=== PATIENT | male | born 1950 | race Caucasian/White ===

== ENCOUNTER 2017-06-15 21:28 | Inpatient (IN) | payer OTHER, MEDICARE ==
[2017-06-15 22:16] LABS: BASO # 0.1 10^3/uL (0.0-0.2); BASO % 0.5 % (0.0-1.0); EOS # 0.1 10^3/uL (0.0-0.50); EOS % 0.6 % (0.0-3.0); HEMATOCRIT 31.7 % (42.0-52.0); HEMOGLOBIN 10.3 g/dl (14.0-18.0); IMMATURE GRANULOCYTE % 1.1 % (0-3.0); LYMPH # 2.1 10^3/uL (1.5-4.5); LYMPH % 12.7 % (24.0-44.0); MEAN CORPUSCULAR HEMOGLOBIN 31.6 pg (27.0-33.0); MEAN CORPUSCULAR HGB CONC 32.5 g/dl (32.0-36.5); MEAN CORPUSCULAR VOLUME 97.2 fl (80.0-96.0); MONO # 1.2 10^3/uL (0.0-0.8); MONO % 7.4 % (0.0-5.0); NEUTROPHILS # 12.6 10^3/uL (1.8-7.7); NEUTROPHILS % 77.7 % (36.0-66.0); PLATELET COUNT, AUTOMATED 485 10^3/uL (150-450); RED BLOOD COUNT 3.26 10^6/uL (4.30-6.10); RED CELL DISTRIBUTION WIDTH 31.3 % (11.5-14.5); WHITE BLOOD COUNT 16.2 10^3/uL (4.0-10.0)
[2017-06-15 22:26] LABS: ADD MORPHOLOGY? YES; POSITIVE MORPH POS FLAG
[2017-06-15 22:28] LABS: LACTIC ACID SEPSIS PROTOCOL 1.5 MMOL/L (0.4-2.0)
[2017-06-15 22:29] LABS: NT-PRO BNP 2174 PG/ML (<125)
[2017-06-15 22:30] LABS: ANION GAP 7 MEQ/L (8-16); BLOOD UREA NITROGEN 30 MG/DL (7-18); CALCIUM LEVEL 8.9 MG/DL (8.8-10.2); CARBON DIOXIDE LEVEL 27 MEQ/L (21-32); CHLORIDE LEVEL 107 MEQ/L (98-107); CK-MB VALUE MASS 1.1 NG/ML (0.0-3.6); CPK CREATINE PHOSPHOKINASE 28 U/L (39-308); CREATININE FOR GFR 1.19 MG/DL (0.70-1.30); GLOMERULAR FILTRATION RATE > 60.0 (>49); GLUCOSE, FASTING 78 MG/DL (70-100); MB/CK RELATIVE INDEX 3.92 (< OR =4); POTASSIUM SERUM 4.1 MEQ/L (3.5-5.1); SODIUM LEVEL 141 MEQ/L (136-145); TROPONIN I < 0.02 NG/ML (< 0.10)
[2017-06-15 22:34] LABS: ABG BASE EXCESS -1.2 (-2.0-2.0); ABG HCO3 21.9 MEQ/L (22.0-26.0); ABG O2 SATURATION 98.5 % (95.0-99.0); ABG PARTIAL PRESSURE CO2 31.2 mmHg (35.0-45.0); ABG PARTIAL PRESSURE O2 113.2 mmHg (75.0-100.0); ABG STANDARD HCO3 23.4 MEQ/L (22.0-26.0); ABG TOTAL CO2 22.9 MEQ/L (23.0-31.0); ABG pH (ARTERIAL) 7.464 UNITS (7.350-7.450)
[2017-06-15 22:52] LABS: INFLUENZA A AMPLIFICATION NEGATIVE (NEGATIVE); INFLUENZA B AMPLIFICATION NEGATIVE (NEGATIVE)
[2017-06-15 23:18] LABS: ANISOCYTOSIS 3+; HYPOCHROMASIA 2+; TARGET CELLS 1+
[2017-06-15 23:19] LABS: GIANT PLATELETS 1+; PLATELET ESTIMATE INCREASED (NORMAL)
[2017-06-15 23:22] LABS: POIKILOCYTOSIS 1+
[2017-06-15] MEDS ORDERED: IPRATROPIUM 0.5MG/ALBUTEROL 2.5MG INH SOL UD 3ML (DUONEB)(J7620) NEB (23:30)
[2017-06-15] MEDS ORDERED: DEXTROSE 50% 50 ML SYRINGE IV (23:30)
[2017-06-15] MEDS ORDERED: GLUCAGON FOR INJ 1 MG VIAL (J1610) SC (23:30)
[2017-06-15] MEDS ORDERED: ONDANSETRON 4MG/2ML VIAL (J2405) IV (23:30)
[2017-06-15] MEDS ORDERED: GLUCOSE 4 GM CHEW TABLET PO (23:30)
[2017-06-15] MEDS: PIPERACILLIN/TAZOBACTAM SOD 3.375 GM in APPROPRIATE DILUENT 1 EA IV (23:57)
[2017-06-16] MEDS: OMEPRAZOLE 20 MG CAP PO ×4 (00:22→20:01)
[2017-06-16] MEDS: IPRATROPIUM 0.5MG/ALBUTEROL 2.5MG INH SOL UD 3ML (DUONEB)(J7620) NEB ×4 (01:01→23:09)
[2017-06-16] MEDS: methylPREDNISolone INJ 125 MG/2 ML VIAL (J2930) IV ×3 (01:02→23:15)
[2017-06-16] MEDS: ACETAMINOPHEN TAB 650MG DOSE (2X325MG) PO (02:40)
[2017-06-16] MEDS: ALBUTEROL SULFATE 2.5 MG/0.5 ML INH NEB SOLN NEB (02:48)
[2017-06-16] MEDS: HumaLOG INSULIN (NovoLOG) PER UNIT SC ×4 (07:45→20:53)
[2017-06-16 07:48] LABS: BEDSIDE GLUCOSE 266 MG/DL (80-115)
[2017-06-16] MEDS: HYOSCYAMINE SULFATE 0.125 MG SUBL TABLET PO ×3 (08:45→20:01)
[2017-06-16] MEDS: FEBUXOSTAT 40 MG TABLET (ULORIC) PO (08:45)
[2017-06-16] MEDS: DOCUSATE SODIUM 100 MG CAP PO ×2 (08:48→20:01)
[2017-06-16] MEDS: PIPERACILLIN/TAZOBACTAM SOD 3.375 GM in APPROPRIATE DILUENT 1 EA IV ×3 (08:48→23:15)
[2017-06-16] MEDS: METOPROLOL SUCC *XL* 25MG TAB (TopROL *XL*) PO (08:48)
[2017-06-16] MEDS: ENOXAPARIN 40 MG/0.4 ML SYRINGE (J1650) SC (08:50)
[2017-06-16 09:32] LABS: PHOSPHORUS LEVEL 4.9 MG/DL (2.5-4.9)
[2017-06-16 09:32] LABS: MAGNESIUM LEVEL 1.9 MG/DL (1.8-2.4)
[2017-06-16] MEDS: LORazepam 0.5 MG TAB PO ×2 (10:38→20:01)
[2017-06-16 11:45] LABS: BEDSIDE GLUCOSE 398 MG/DL (80-115)
[2017-06-16 13:36] LABS: ANION GAP 12 MEQ/L (8-16); BLOOD UREA NITROGEN 48 MG/DL (7-18); CALCIUM LEVEL 8.8 MG/DL (8.8-10.2); CARBON DIOXIDE LEVEL 22 MEQ/L (21-32); CHLORIDE LEVEL 102 MEQ/L (98-107); CPK CREATINE PHOSPHOKINASE 60 U/L (39-308); CREATININE FOR GFR 1.74 MG/DL (0.70-1.30); GLOMERULAR FILTRATION RATE 42.1 (>49); GLUCOSE, FASTING 394 MG/DL (70-100); MAGNESIUM LEVEL 1.9 MG/DL (1.8-2.4); POTASSIUM SERUM 4.9 MEQ/L (3.5-5.1); SODIUM LEVEL 136 MEQ/L (136-145); TROPONIN I < 0.02 NG/ML (< 0.10)
[2017-06-16 13:37] LABS: CK-MB VALUE MASS 1.9 NG/ML (0.0-3.6); MB/CK RELATIVE INDEX 3.16 (< OR =4)
[2017-06-16] MEDS: MAG SULF 1GM/100ML (MAG RUN) 1 GM in APPROPRIATE DILUENT 1 EA IV (14:26)
[2017-06-16 17:41] LABS: BEDSIDE GLUCOSE 438 MG/DL (80-115)
[2017-06-16] MEDS: BENZONATATE 100 MG CAP PO (20:01)
[2017-06-16 21:18] LABS: BEDSIDE GLUCOSE 472 MG/DL (80-115)
[2017-06-16 23:20] LABS: BEDSIDE GLUCOSE 420 MG/DL (80-115)
[2017-06-17] MEDS: BENZONATATE 100 MG CAP PO ×3 (03:55→21:49)
[2017-06-17 04:22] LABS: BASO % 0.1 % (0.0-1.0); HEMATOCRIT 26.4 % (42.0-52.0); HEMOGLOBIN 8.8 g/dl (14.0-18.0); IMMATURE GRANULOCYTE % 1.1 % (0-3.0); LYMPH # 0.7 10^3/uL (1.5-4.5); LYMPH % 4.9 % (24.0-44.0); MEAN CORPUSCULAR HEMOGLOBIN 31.3 pg (27.0-33.0); MEAN CORPUSCULAR HGB CONC 33.3 g/dl (32.0-36.5); MONO # 0.5 10^3/uL (0.0-0.8); MONO % 3.3 % (0.0-5.0); NEUTROPHILS # 13.3 10^3/uL (1.8-7.7); NEUTROPHILS % 90.6 % (36.0-66.0); PLATELET COUNT, AUTOMATED 393 10^3/uL (150-450); RED BLOOD COUNT 2.81 10^6/uL (4.30-6.10); RED CELL DISTRIBUTION WIDTH 31.2 % (11.5-14.5); WHITE BLOOD COUNT 14.6 10^3/uL (4.0-10.0)
[2017-06-17 04:24] LABS: ADD MORPHOLOGY? YES; POSITIVE MORPH POS FLAG
[2017-06-17 04:45] LABS: ANION GAP 10 MEQ/L (8-16); BLOOD UREA NITROGEN 63 MG/DL (7-18); CALCIUM LEVEL 8.6 MG/DL (8.8-10.2); CARBON DIOXIDE LEVEL 22 MEQ/L (21-32); CHLORIDE LEVEL 102 MEQ/L (98-107); CREATININE FOR GFR 1.83 MG/DL (0.70-1.30); GLOMERULAR FILTRATION RATE 39.7 (>49); MAGNESIUM LEVEL 2.2 MG/DL (1.8-2.4); POTASSIUM SERUM 4.3 MEQ/L (3.5-5.1); SODIUM LEVEL 134 MEQ/L (136-145)
[2017-06-17 04:53] LABS: GLUCOSE, FASTING 477 MG/DL (70-100)
[2017-06-17 05:00] LABS: TARGET CELLS 1+
[2017-06-17 05:01] LABS: HYPOCHROMASIA 2+
[2017-06-17 05:04] LABS: ANISOCYTOSIS 3+; POIKILOCYTOSIS 1+
[2017-06-17 05:05] LABS: PLATELET ESTIMATE NORMAL (NORMAL)
[2017-06-17] MEDS: HumaLOG INSULIN (NovoLOG) PER UNIT SC ×5 (05:09→21:51)
[2017-06-17 05:39] LABS: BEDSIDE GLUCOSE 496 MG/DL (80-115)
[2017-06-17 06:09] LABS: BEDSIDE GLUCOSE 460 MG/DL (80-115)
[2017-06-17 07:40] LABS: BEDSIDE GLUCOSE 448 MG/DL (80-115)
[2017-06-17] MEDS: PIPERACILLIN/TAZOBACTAM SOD 3.375 GM in APPROPRIATE DILUENT 1 EA IV ×2 (07:51→16:17)
[2017-06-17] MEDS: IPRATROPIUM 0.5MG/ALBUTEROL 2.5MG INH SOL UD 3ML (DUONEB)(J7620) NEB ×2 (08:17→15:12)
[2017-06-17] MEDS ORDERED: CHLORTHALIDONE 25 MG TAB PO (09:00)
[2017-06-17] MEDS: HYOSCYAMINE SULFATE 0.125 MG SUBL TABLET PO ×3 (09:09→21:50)
[2017-06-17] MEDS: ENOXAPARIN 40 MG/0.4 ML SYRINGE (J1650) SC (09:10)
[2017-06-17] MEDS: LEVEMIR (INSULIN DETEMIR) 1 UNITS/0.01ML SC ×2 (09:11→21:50)
[2017-06-17] MEDS: OMEPRAZOLE 20 MG CAP PO ×2 (09:12→21:50)
[2017-06-17] MEDS: FEBUXOSTAT 40 MG TABLET (ULORIC) PO (09:12)
[2017-06-17] MEDS: METOPROLOL SUCC *XL* 25MG TAB (TopROL *XL*) PO (09:12)
[2017-06-17] MEDS: DOCUSATE SODIUM 100 MG CAP PO ×2 (09:12→21:50)
[2017-06-17 11:55] LABS: BEDSIDE GLUCOSE 482 MG/DL (80-115)
[2017-06-17] MEDS: methylPREDNISolone INJ 125 MG/2 ML VIAL (J2930) IV (12:03)
[2017-06-17] MEDS: LORazepam 0.5 MG TAB PO (16:22)
[2017-06-17 17:43] LABS: BEDSIDE GLUCOSE 479 MG/DL (80-115)
[2017-06-17 22:04] LABS: BEDSIDE GLUCOSE 500 MG/DL (80-115)
[2017-06-18] MEDS: IPRATROPIUM 0.5MG/ALBUTEROL 2.5MG INH SOL UD 3ML (DUONEB)(J7620) NEB ×2 (00:04→07:53)
[2017-06-18] MEDS: methylPREDNISolone INJ 125 MG/2 ML VIAL (J2930) IV (00:08)
[2017-06-18] MEDS: LORazepam 0.5 MG TAB PO ×3 (00:08→20:16)
[2017-06-18] MEDS: PIPERACILLIN/TAZOBACTAM SOD 3.375 GM in APPROPRIATE DILUENT 1 EA IV ×3 (00:08→17:32)
[2017-06-18 01:19] LABS: HEMATOCRIT 28.6 % (42.0-52.0); HEMOGLOBIN 9.3 g/dl (14.0-18.0); MEAN CORPUSCULAR HEMOGLOBIN 31.1 pg (27.0-33.0); MEAN CORPUSCULAR HGB CONC 32.5 g/dl (32.0-36.5); MEAN CORPUSCULAR VOLUME 95.7 fl (80.0-96.0); PLATELET COUNT, AUTOMATED 371 10^3/uL (150-450); RED BLOOD COUNT 2.99 10^6/uL (4.30-6.10); RED CELL DISTRIBUTION WIDTH 31.6 % (11.5-14.5); WHITE BLOOD COUNT 17.1 10^3/uL (4.0-10.0)
[2017-06-18 01:30] LABS: ANION GAP 10 MEQ/L (8-16); BLOOD UREA NITROGEN 75 MG/DL (7-18); CALCIUM LEVEL 8.9 MG/DL (8.8-10.2); CARBON DIOXIDE LEVEL 24 MEQ/L (21-32); CHLORIDE LEVEL 104 MEQ/L (98-107); CK-MB VALUE MASS 12.1 NG/ML (0.0-3.6); CPK CREATINE PHOSPHOKINASE 180 U/L (39-308); CREATININE FOR GFR 2.04 MG/DL (0.70-1.30); GLOMERULAR FILTRATION RATE 35.1 (>49); MB/CK RELATIVE INDEX 6.72 (< OR =4); POSITIVE MORPH POS FLAG; POTASSIUM SERUM 4.5 MEQ/L (3.5-5.1); SODIUM LEVEL 138 MEQ/L (136-145); TROPONIN I 0.43 NG/ML (< 0.10)
[2017-06-18 01:35] LABS: GLUCOSE, FASTING 422 MG/DL (70-100)
[2017-06-18 01:37] LABS: MAGNESIUM LEVEL 2.2 MG/DL (1.8-2.4)
[2017-06-18 04:13] LABS: HEMATOCRIT 27.6 % (42.0-52.0); MEAN CORPUSCULAR HEMOGLOBIN 31.3 pg (27.0-33.0); MEAN CORPUSCULAR HGB CONC 32.6 g/dl (32.0-36.5); MEAN CORPUSCULAR VOLUME 95.8 fl (80.0-96.0); PLATELET COUNT, AUTOMATED 355 10^3/uL (150-450); RED BLOOD COUNT 2.88 10^6/uL (4.30-6.10); RED CELL DISTRIBUTION WIDTH 30.9 % (11.5-14.5); WHITE BLOOD COUNT 16.9 10^3/uL (4.0-10.0)
[2017-06-18 04:14] LABS: ADD MANUAL DIFFER YES; DIFF SLIDE NUMBER 40; POSITIVE MORPH POS FLAG
[2017-06-18] MEDS: AMIODARONE HCL 150 MG in APPROPRIATE DILUENT 1 EA IV (04:20)
[2017-06-18 04:32] LABS: ANION GAP 10 MEQ/L (8-16); BLOOD UREA NITROGEN 78 MG/DL (7-18); CALCIUM LEVEL 8.4 MG/DL (8.8-10.2); CARBON DIOXIDE LEVEL 21 MEQ/L (21-32); CHLORIDE LEVEL 105 MEQ/L (98-107); CREATININE FOR GFR 1.96 MG/DL (0.70-1.30); GLOMERULAR FILTRATION RATE 36.7 (>49); MAGNESIUM LEVEL 2.1 MG/DL (1.8-2.4); POTASSIUM SERUM 4.5 MEQ/L (3.5-5.1); SODIUM LEVEL 136 MEQ/L (136-145)
[2017-06-18 04:46] LABS: GLUCOSE, FASTING 481 MG/DL (70-100)
[2017-06-18 05:07] LABS: ANISOCYTOSIS 3+; ATYPICAL LYMPH 1 % (0-5); HYPOCHROMASIA 2+; MONOCYTES 2 % (0-8); NEUTROPHILS 97 % (35-75)
[2017-06-18 05:08] LABS: POIKILOCYTOSIS 1+; TARGET CELLS 1+
[2017-06-18 05:09] LABS: GIANT PLATELETS 1+
[2017-06-18 05:12] LABS: PLATELET ESTIMATE NORMAL (NORMAL)
[2017-06-18 05:53] LABS: CPK CREATINE PHOSPHOKINASE 161 U/L (39-308); MB/CK RELATIVE INDEX 7.45 (< OR =4); TROPONIN I 0.38 NG/ML (< 0.10)
[2017-06-18] MEDS: ENOXAPARIN 40 MG/0.4 ML SYRINGE (J1650) SC (08:22)
[2017-06-18] MEDS: HumaLOG INSULIN (NovoLOG) PER UNIT SC ×5 (08:22→20:17)
[2017-06-18] MEDS: HYOSCYAMINE SULFATE 0.125 MG SUBL TABLET PO ×3 (08:23→20:16)
[2017-06-18] MEDS: FEBUXOSTAT 40 MG TABLET (ULORIC) PO (08:23)
[2017-06-18] MEDS: ASPIRIN 325 MG TAB PO (08:23)
[2017-06-18] MEDS: DOCUSATE SODIUM 100 MG CAP PO ×2 (08:23→20:16)
[2017-06-18] MEDS: OMEPRAZOLE 20 MG CAP PO ×2 (08:23→20:16)
[2017-06-18] MEDS: METOPROLOL SUCC *XL* 25MG TAB (TopROL *XL*) PO (08:24)
[2017-06-18] MEDS: CHLORTHALIDONE 25 MG TAB PO (08:24)
[2017-06-18] MEDS: predniSONE 20 MG TAB PO (08:24)
[2017-06-18] MEDS: BENZONATATE 100 MG CAP PO ×2 (08:29→22:21)
[2017-06-18 12:04] LABS: BEDSIDE GLUCOSE 560 MG/DL (80-115)
[2017-06-18 12:27] LABS: BEDSIDE GLUCOSE 522 MG/DL (80-115)
[2017-06-18 12:27] LABS: BEDSIDE GLUCOSE 487 MG/DL (80-115)
[2017-06-18 12:40] LABS: BEDSIDE GLUCOSE CONFIRMATION 585 MG/DL (LESS THAN 200)
[2017-06-18] MEDS: LEVEMIR (INSULIN DETEMIR) 1 UNITS/0.01ML SC ×3 (13:15→20:17)
[2017-06-18 16:59] LABS: BEDSIDE GLUCOSE 382 MG/DL (80-115)
[2017-06-18 20:38] LABS: BEDSIDE GLUCOSE 360 MG/DL (80-115)
[2017-06-19] MEDS: IPRATROPIUM 0.5MG/ALBUTEROL 2.5MG INH SOL UD 3ML (DUONEB)(J7620) NEB ×3 (00:11→15:19)
[2017-06-19] MEDS: PIPERACILLIN/TAZOBACTAM SOD 3.375 GM in APPROPRIATE DILUENT 1 EA IV (02:28)
[2017-06-19 04:44] LABS: HEMATOCRIT 29.7 % (42.0-52.0); HEMOGLOBIN 9.6 g/dl (14.0-18.0); IMMATURE GRANULOCYTE % 0.7 % (0-3.0); LYMPH # 0.7 10^3/uL (1.5-4.5); LYMPH % 7.1 % (24.0-44.0); MEAN CORPUSCULAR HEMOGLOBIN 30.5 pg (27.0-33.0); MEAN CORPUSCULAR HGB CONC 32.3 g/dl (32.0-36.5); MEAN CORPUSCULAR VOLUME 94.3 fl (80.0-96.0); MONO % 9.4 % (0.0-5.0); NEUTROPHILS # 8.4 10^3/uL (1.8-7.7); NEUTROPHILS % 82.8 % (36.0-66.0); PLATELET COUNT, AUTOMATED 326 10^3/uL (150-450); RED BLOOD COUNT 3.15 10^6/uL (4.30-6.10); RED CELL DISTRIBUTION WIDTH 31.1 % (11.5-14.5); WHITE BLOOD COUNT 10.2 10^3/uL (4.0-10.0)
[2017-06-19 05:01] LABS: ANION GAP 7 MEQ/L (8-16); BLOOD UREA NITROGEN 74 MG/DL (7-18); CALCIUM LEVEL 8.8 MG/DL (8.8-10.2); CARBON DIOXIDE LEVEL 26 MEQ/L (21-32); CHLORIDE LEVEL 108 MEQ/L (98-107); CREATININE FOR GFR 1.73 MG/DL (0.70-1.30); GLOMERULAR FILTRATION RATE 42.4 (>49); GLUCOSE, FASTING 228 MG/DL (70-100); MAGNESIUM LEVEL 2.3 MG/DL (1.8-2.4); POTASSIUM SERUM 4.8 MEQ/L (3.5-5.1); SODIUM LEVEL 141 MEQ/L (136-145)
[2017-06-19 05:09] LABS: ADD MORPHOLOGY? YES; POSITIVE MORPH POS FLAG
[2017-06-19 05:13] LABS: ANISOCYTOSIS 3+; HYPOCHROMASIA 1+; POIKILOCYTOSIS 1+
[2017-06-19 05:14] LABS: TARGET CELLS 1+
[2017-06-19] MEDS: HumaLOG INSULIN (NovoLOG) PER UNIT SC ×4 (08:58→20:19)
[2017-06-19] MEDS: LEVEMIR (INSULIN DETEMIR) 1 UNITS/0.01ML SC ×2 (08:58→20:18)
[2017-06-19] MEDS: ENOXAPARIN 40 MG/0.4 ML SYRINGE (J1650) SC (08:58)
[2017-06-19] MEDS: CEFDINIR 300 MG CAP (OMNICEF) PO (08:59)
[2017-06-19] MEDS: DOCUSATE SODIUM 100 MG CAP PO ×2 (08:59→20:18)
[2017-06-19] MEDS: FUROSEMIDE 40 MG TAB PO (08:59)
[2017-06-19] MEDS: HYOSCYAMINE SULFATE 0.125 MG SUBL TABLET PO ×3 (08:59→20:17)
[2017-06-19] MEDS: OMEPRAZOLE 20 MG CAP PO ×2 (08:59→20:17)
[2017-06-19] MEDS: METOPROLOL SUCC (TopROL XL) 50MG **XL** TAB PO (08:59)
[2017-06-19] MEDS: ASPIRIN 325 MG TAB PO (08:59)
[2017-06-19] MEDS: FEBUXOSTAT 40 MG TABLET (ULORIC) PO (08:59)
[2017-06-19] MEDS: predniSONE 20 MG TAB PO (09:00)
[2017-06-19] MEDS: BENZONATATE 100 MG CAP PO ×2 (09:03→20:17)
[2017-06-19 10:09] LABS: PLATELET ESTIMATE NORMAL (NORMAL)
[2017-06-19 11:59] LABS: BEDSIDE GLUCOSE 312 MG/DL (80-115)
[2017-06-19] MEDS: LORazepam 0.5 MG TAB PO ×2 (14:32→21:41)
[2017-06-19] MEDS ORDERED: LORazepam 0.5 MG TAB PO (16:00)
[2017-06-19 16:36] LABS: BEDSIDE GLUCOSE 312 MG/DL (80-115)
[2017-06-19 20:15] LABS: BEDSIDE GLUCOSE 402 MG/DL (80-115)
[2017-06-20 04:58] LABS: EOS % 0.5 % (0.0-3.0); HEMOGLOBIN 9.4 g/dl (14.0-18.0); IMMATURE GRANULOCYTE % 0.3 % (0-3.0); LYMPH # 1.2 10^3/uL (1.5-4.5); LYMPH % 19.9 % (24.0-44.0); MEAN CORPUSCULAR HEMOGLOBIN 31.4 pg (27.0-33.0); MEAN CORPUSCULAR HGB CONC 33.6 g/dl (32.0-36.5); MEAN CORPUSCULAR VOLUME 93.6 fl (80.0-96.0); MONO % 16.7 % (0.0-5.0); NEUTROPHILS # 3.7 10^3/uL (1.8-7.7); NEUTROPHILS % 62.6 % (36.0-66.0); PLATELET COUNT, AUTOMATED 295 10^3/uL (150-450); RED BLOOD COUNT 2.99 10^6/uL (4.30-6.10); WHITE BLOOD COUNT 5.9 10^3/uL (4.0-10.0)
[2017-06-20 05:02] LABS: ADD MORPHOLOGY? YES; POSITIVE MORPH POS FLAG
[2017-06-20] MEDS: LORazepam 0.5 MG TAB PO (05:09)
[2017-06-20 05:13] LABS: ANION GAP 7 MEQ/L (8-16); BLOOD UREA NITROGEN 65 MG/DL (7-18); CALCIUM LEVEL 8.4 MG/DL (8.8-10.2); CARBON DIOXIDE LEVEL 29 MEQ/L (21-32); CHLORIDE LEVEL 107 MEQ/L (98-107); CREATININE FOR GFR 1.26 MG/DL (0.70-1.30); GLOMERULAR FILTRATION RATE > 60.0 (>49); GLUCOSE, FASTING 161 MG/DL (70-100); POTASSIUM SERUM 4.4 MEQ/L (3.5-5.1); SODIUM LEVEL 143 MEQ/L (136-145)
[2017-06-20 05:26] LABS: ANISOCYTOSIS 3+; HYPOCHROMASIA 1+; PLATELET ESTIMATE NORMAL (NORMAL); POIKILOCYTOSIS 1+
[2017-06-20] MEDS: HumaLOG INSULIN (NovoLOG) PER UNIT SC ×2 (07:16→11:57)
[2017-06-20] MEDS: IPRATROPIUM 0.5MG/ALBUTEROL 2.5MG INH SOL UD 3ML (DUONEB)(J7620) NEB ×2 (07:45)
[2017-06-20] MEDS: ASPIRIN 325 MG TAB PO (08:27)
[2017-06-20] MEDS: LEVEMIR (INSULIN DETEMIR) 1 UNITS/0.01ML SC (08:27)
[2017-06-20] MEDS: FEBUXOSTAT 40 MG TABLET (ULORIC) PO (08:27)
[2017-06-20] MEDS: ENOXAPARIN 40 MG/0.4 ML SYRINGE (J1650) SC (08:27)
[2017-06-20] MEDS: predniSONE 20 MG TAB PO (08:28)
[2017-06-20] MEDS: HYOSCYAMINE SULFATE 0.125 MG SUBL TABLET PO (08:28)
[2017-06-20] MEDS: DOCUSATE SODIUM 100 MG CAP PO (08:28)
[2017-06-20] MEDS: CEFDINIR 300 MG CAP (OMNICEF) PO (08:28)
[2017-06-20] MEDS: FUROSEMIDE 40 MG TAB PO (08:29)
[2017-06-20] MEDS: METOPROLOL SUCC (TopROL XL) 50MG **XL** TAB PO (08:29)
[2017-06-20] MEDS: OMEPRAZOLE 20 MG CAP PO (08:29)
[2017-06-20 11:50] LABS: BEDSIDE GLUCOSE 158 MG/DL (80-115)
[2017-06-21] MEDS ORDERED: predniSONE 10 MG TAB PO (09:00)
[2017-06-24] MEDS ORDERED: predniSONE 10 MG TAB PO (09:00)
[2017-06-27] MEDS ORDERED: predniSONE 10 MG TAB PO (09:00)
== END 2017-06-20 12:45 | disposition home or self-care (01) | DRG 871 ==
LOC: M ICU 06-16 07:18 → M ED 21:28 → M ED INP 23:26
DX: A41.9 Sepsis, unspecified organism (principal); J96.01 Acute respiratory failure with hypoxia; J18.9 Pneumonia, unspecified organism; E87.3 Alkalosis; I13.0 Hypertensive heart and chronic kidney disease with heart failure and stage 1 through stage 4 chronic kidney disease, or unspecified chronic kidney disease; I47.2 Ventricular tachycardia; J84.89 Other specified interstitial pulmonary diseases; I49.3 Ventricular premature depolarization; K80.20 Calculus of gallbladder without cholecystitis without obstruction; E11.22 Type 2 diabetes mellitus with diabetic chronic kidney disease; D46.9 Myelodysplastic syndrome, unspecified; F41.9 Anxiety disorder, unspecified; I50.9 Heart failure, unspecified; N18.3 Chronic kidney disease, stage 3 (moderate); K21.9 Gastro-esophageal reflux disease without esophagitis; M10.9 Gout, unspecified; J43.9 Emphysema, unspecified; Z79.82 Long term (current) use of aspirin; Z79.4 Long term (current) use of insulin; Z79.899 Other long term (current) drug therapy; Z92.21 Personal history of antineoplastic chemotherapy

== ENCOUNTER 2018-07-31 12:32 | Inpatient (IN) | payer OTHER, MEDICARE ==
[~2018-07-31] VITALS: Ht 172.7 cm; Wt 107.5 kg
[~2018-07-31 12:32] MED LIST: ACET1TAB55 PO; ALBU83IN INH; AMOX500T2 PO; ASPI1TAB20 PO; ASPI81TA26 PO; AUGM500T34 PO; AUGM875T28 PO; BENA20TA8 PO; BENZ-18 PO; CEFD1CAP8 PO; CHLO125TA PO; CHLO25TA PO; CHLO50TA PO; CIPR-249 PO; CIPR-250 PO; CIPR250T3 PO; DRIS50003 PO; FEBU40TA PO; FURO40TA2 PO; GLIM1TAB PO; GLIM2TAB PO; HEPA10004 INJ; HUMA100I5 SC; HYDR-3713 PO; HYOS0.1248 PO; HYOS0.1256 SL; INSUHUMDS SC; LASI20TA3 PO; LEVO750T13 PO; LORA0.5T11 PO; LORA1TAB12 PO; METO1TAB32 PO; METO1TAB7 PO; MILK120011 PO; MOXI1TAB PO; OMEP40CA2 PO; PRED-351 PO; PRED10TA2 PO; PRED20TAB PO; PROC1INJ IV; PROC1INJ5 IJ; PROC1INJ6 INJ; Revlimid 10mg cap PO; TORS10TA3 PO; TRES1INJ SC; prednisone PO
[2018-07-31 13:24] LABS: BASO % 0.1 % (0.0-1.0); EOS % 0.1 % (0.0-3.0); HEMATOCRIT 22.9 % (42.0-52.0); HEMOGLOBIN 7.1 g/dl (13.5-17.5); LYMPH # 1.2 10^3/uL (1.5-4.5); LYMPH % 10.3 % (24.0-44.0); MEAN CORPUSCULAR VOLUME 103.2 fl (80.0-96.0); MONO # 1.4 10^3/uL (0.0-0.8); MONO % 12.4 % (0.0-5.0); NEUTROPHILS # 8.5 10^3/uL (1.8-7.7); NEUTROPHILS % 75.6 % (36.0-66.0); PLATELET COUNT, AUTOMATED 181 10^3/uL (150-450); RED BLOOD COUNT 2.22 10^6/uL (4.30-6.10); WHITE BLOOD COUNT 11.3 10^3/uL (4.0-10.0)
[2018-07-31 13:39] LABS: INR 1.37; PROTHROMBIN TIME 17.1 SECONDS (12.1-14.4)
--- NOTE | 2018-07-31 13:45 | REP ---
PORTABLE CHEST: AP portable view of the chest is performed. Comparison made with prior studies, most recently 06/29/2015. The heart appears enlarged. There appears to be increased opacity medially in the right middle lobe region suggesting an area of atelectasis or infiltrate. Mediastinal silhouette otherwise appears unremarkable. There is a right central venous catheter with the tip in the superior vena cava. Electronically Signed by Rodrigo Victor MD 08/03/2018 01:36 P
[2018-07-31 13:49] LABS: ERYTHROCYTE SEDIMENTATION RATE 60 mm/hr (0-20)
--- NOTE | 2018-07-31 14:31 | REP ---
CT chest without contrast: History: Shortness of breath. Enlarged heart. Comparison chest CT: June 15, 2017. CT findings: Preliminary digital solar sales representative and assessor radiograph demonstrates mild cardiac enlargement. There is a right-sided Hepwir-G-Zeff catheter. There is patchy consolidation in the right upper lobe consistent with pneumonia. Fine reticulonodular pattern is seen throughout the lung cardozo. This is much less prominent than it was on June 15, 2017. There are few bullous changes and emphysematous changes in the upper lobes. No pleural effusion is seen. There is a small pericardial effusion. Four-chamber cardiac dilation is seen. The unenhanced blood pool is lower attenuation in the myocardium suggesting anemia. The liver is hyperdense compared to the spleen consistent with hemochromatosis. There is opaque material in the gallbladder suggesting gallstones. No adrenal lesion is seen. No bony destructive lesion is appreciated. Impression: Right upper lobe infiltrate consistent with pneumonia. Fine reticulonodular pattern in the lung cardozo consistent with some degree of chronic interstitial lung disease. Small pericardial effusion. Cardiomegaly, evidence suggesting anemia. cholelithiasis. Increased density in the liver consistent with hemochromatosis. Electronically Signed by Az Barraza MD 07/31/2018 04:44 P
[2018-07-31 14:34] LABS: ALBUMIN 2.6 GM/DL (3.2-5.2); BILIRUBIN,DIRECT 0.4 MG/DL (0.0-0.2); BILIRUBIN,TOTAL 3.2 MG/DL (0.2-1.0); C REACTIVE PROTEIN QUANTITATIV 11.9 MG/DL (0.00-0.30); CALCIUM LEVEL 7.7 MG/DL (8.8-10.2); CREATININE FOR GFR 1.4 MG/DL (0.70-1.30); MB/CK RELATIVE INDEX 15.77 (< OR =4); POTASSIUM SERUM 4.6 MEQ/L (3.5-5.1); THYROID STIMULATING HORMONE 1.78 uIU/ML (0.358-3.740); TOTAL PROTEIN 4.3 GM/DL (6.4-8.2); TROPONIN I 0.81 NG/ML (< 0.10)
[2018-07-31] MEDS ORDERED: TRES1INJ SC (16:46)
[2018-07-31] MEDS ORDERED: VITA50005 PO (16:46)
[2018-07-31] MEDS ORDERED: BAYE325T16 PO (16:46)
[2018-07-31] MEDS ORDERED: LORA0.5T11 PO (16:46)
[2018-07-31] MEDS ORDERED: METO1TAB7 PO (16:46)
[2018-07-31] MEDS ORDERED: HYOS125TA PO (16:46)
[2018-07-31] MEDS ORDERED: OXYC1TAB23 PO (16:56)
[2018-07-31] MEDS ORDERED: AMOX500T PO (16:56)
[2018-07-31] MEDS ORDERED: PANT-23 PO (16:56)
[2018-07-31] MEDS ORDERED: LOSA25TA14 PO (16:56)
[2018-07-31] MEDS ORDERED: ATOR1TAB19 PO (16:56)
[2018-07-31] MEDS ORDERED: RA M10TA PO (16:56)
[2018-07-31] MEDS ORDERED: PRED20TA PO (16:56)
[2018-07-31] MEDS ORDERED: CHLO25TA PO ×2 (16:56)
[2018-07-31] MEDS ORDERED: GABA-843 PO (16:56)
--- NOTE | 2018-07-31 17:15 | CR ---
DATE OF CONSULTATION: 07/31/2018 Mr. Dunbar is a 67-year-old male who presented to the emergency department today with chest pain and shortness of breath, as well as low hemoglobin. We are asked for consultation on this patient. The patient follows with Dr. May as an outpatient for a history of interstitial lung disease. He is also followed by oncology in [place] for myelodysplastic syndrome with anemia. The patient states that over the past couple of weeks he has been feeling more poorly and has gone in for a transfusion twice over the last 2 weeks. Both times he was transfused with 1 unit of blood and according to the patient's , his hemoglobin essentially stayed the same at 7.1. Upon presentation to the emergency room today, his complete blood count (CBC) was checked and his hemoglobin has remained at 7.1. Most recent transfusion was 3 days ago on Friday. The patient has noted that he has had increased edema that has been progressing over the last week or two. He states that he has swelling that goes up into his hips. He states he has not been weighing himself but believes he is up at least 10 pounds. The patient does have a history of coronary artery disease and received two stents in October. He does have a history of interstitial lung disease, for which he follows with pulmonary, and he is on chronic prednisone therapy. At his last office visit on 07/20/2018, Dr. May decreased his prednisone from 40 mg daily to 20 mg daily. The patient also had a chest CT done at [facility] that Dr. May reviewed with him at that time. I do not have those actual images but according to Dr. May' notes, the lung cardozo were clear and there were no significant findings of acute infiltrate or anything to suggest a flare of interstitial lung disease. She does note though that this test was performed while the patient was on high-dose steroids. She also noted that there was a small foci of sclerosis involving mold multiple vertebral bodies and because a differential diagnosis could include metastatic disease, she has ordered a bone scan that is currently being scheduled. Dr. May believed that the patient's previous interstitial lung disease was related to being on Revlimid for his myelodysplastic syndrome, but he has been off of that for some time now. He had been on Uloric for gout and this was discontinued by Dr. May at his last pulmonary appointment on the chance that the patient could be having a flare of interstitial lung disease from the oric. The patient does states that since his current symptoms started, he has had some increased shortness of breath and some occasional productive cough. He states he will occasionally bring up mucus. He denies any hemoptysis. 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 He notes that he has had some rectal bleeding, which he states is not new. He is scheduled to see his surgeon next week for what sounds to be a possible debridement. The patient denies fevers or chills. He denies any abdominal pain, nausea or vomiting. He denies any unexplained weight loss or night sweats. He states he was recently placed on amoxicillin for dental issues. The patient does follow with Dr. Sahni at nephrology and states recently his chlorthalidone dose was increased. REVIEW OF SYSTEMS: The patient denies fevers, chills and night sweats or unexplained weight loss. HEENT: The patient denies any double or blurry vision. Denies headaches. Denies ear pain. CARDIOVASCULAR: The patient has had some intermittent chest pain, but denies any current chest pain. Denies any palpitations. Does have a history of bigeminy, which he states has been present for many years. Denies any paroxysmal nocturnal dyspnea or orthopnea. PULMONARY: The patient has shortness of breath. Denies hemoptysis. Some cough with productive sputum. ABDOMEN: The patient denies any abdominal pain, nausea, vomiting, diarrhea or constipation. The patient does have some rectal bleeding and does follow with a surgeon with whom he be following up with for possible debridement next week, as noted above. GENITOURINARY: The patient denies any urinary complaints or dysuria. NEUROLOGIC: The patient denies any unilateral weakness or seizures. SKIN: The patient denies any new rashes or skin breakdown. MUSCULOSKELETAL: The patient denies any joint pain or joint swelling. PSYCHOLOGICAL: The patient denies any depression. Does note some anxiety. ENDOCRINE: The patient does have a history of diabetes and is on insulin. PAST MEDICAL HISTORY: 1. Coronary artery disease, stents times two placed in October 2017. 2. Myelodysplastic syndrome with anemia. 3. Interstitial lung disease, possibly secondary to Revlimid. 4. Gastroesophageal reflux disease (GERD). 5. Hypertension. 6. Diabetes. 7. Diastolic dysfunction. 8. Chronic kidney disease. MEDICATIONS: - Protonix 40 mg daily - hyoscyamine 0.1/25 mg before meals - chlorthalidone 50 mg alternating with 75 mg - metoprolol succinate 50 mg daily - Tresiba 50 daily - aspirin 325 mg daily - losartan 25 mg daily - Humalog 3 units with breakfast, 7 units with lunch, 10 units with dinner - atorvastatin 10 mg daily - vitamin D 50,000 units q. week - gabapentin 300 mg at bedtime - Bactrim DS on Mondays, Wednesdays and Fridays - prednisone 20 mg daily - amoxicillin ALLERGIES: NO KNOWN DRUG ALLERGIES FAMILY MEDICAL HISTORY: Noncontributory. SOCIAL HISTORY: The patient denies smoking. He lives with his . They live in [place], [place]. PHYSICAL EXAMINATION: VITALS: Temperature is 98.7, pulse is 92, respiratory rate is 28, blood pressure is 118/55, pulse ox 94% on 2 liters. General: The patient is alert and oriented times three. He speaks in complete sentences. He appears chronically ill. Skin: Pale and ashy. HEENT: Head is normocephalic, atraumatic. Eyes or not icteric. Moist mucous membranes. Tongue is midline. Neck is supple. No cervical lymphadenopathy. Mild jugular venous distention (JVD). Trachea is midline. Heart: Regular rate and rhythm. S1, S2. No murmurs. Pulmonary: Breath sounds are clear to auscultation bilaterally. No wheezes, rales, rhonchi or crackles. No dullness to percussion. No accessory muscle use. Abdomen: Positive bowel sounds, soft, nontender. No rebound. No guarding. No obvious hepatosplenomegaly; however, somewhat difficult to elicit due to body habitus. Abdomen is protuberant. Extremities: The patient has bilateral 1 to 2+ pitting edema of the bilateral distal lower extremities to the sacrum. Skin is warm and dry, somewhat pale and ashy in appearance. Neurologic: Nonfocal. LABORATORY DATA WBC 11.3, hemoglobin 7.1, hematocrit 22.9, platelets 181. Sodium is 140, potassium is 4.6, chloride 107, carbon dioxide 25, BUN 39, creatinine 1.40, glucose 169, calcium 7.7, total bili 3.2, direct bili 0.4, AST 14, ALT 27, alk phos 97, creatinine kinase 26, CK-MB 4.0, CK-MB relative is 15.77. Troponin I 0.81, CRP 11.90. BNP is 5452, total protein is 4.3, albumin 2.6, lipase 66, TSH 1.780. Electrocardiogram (EKG) shows nonspecific ST changes. Rhythm strips show bigeminy. Chest CT shows a right upper lobe consolidation. There is nonspecific nodules which are pleural base with the largest in the right middle lobe. Vascular congestion with prominent blood vessels. There does appear to be interstitial edema versus infiltrates. Right pretracheal node enlargement approximately 1.4 cm. Emphysematous changes in the upper lobes. Cardiomegaly with biatrial enlargement. ASSESSMENT/PLAN: 1. Hypoxia. He is on supplemental oxygen by nasal cannula at 2 liters. Hypoxia may be due to his congestive heart failure versus interstitial lung disease versus pneumonia. He is being admitted by the hospitalist and we will defer diuresis of the congestive heart failure to the hospitalist. We will treat the pneumonia. Start the patient on doxycycline. 2. Anemia. The patient's hemoglobin is 7.1. We will defer blood transfusion and management to the admitting hospitalist. The patient most recently received a transfusion earlier this week on Friday with apparently no change in the hemoglobin after the 1 unit transfusion. The patient will need to be monitored closely and watch for volume overload with any transfusion given the patient's congestive heart failure. 3. Congestive heart failure. The patient is volume overloaded. Possibly some this may be from his frequent blood transfusions. Fluid balance will need to be monitored closely to watch for volume overload with any transfusions. Would also recommend the patient having and echocardiogram. 4. Interstitial lung disease. The patient has a history of interstitial lung disease, which was thought to be secondary to past history of Revlimid for myelodysplastic syndrome. Chest CT from earlier this month from [facility], which Dr. May reviewed in the office at the patient's last office visit a couple of weeks ago, did not appear to show a flare of interstitial lung disease according to her notes. Current chest CT does show interstitial edema versus infiltrates, as noted above. The patient is currently on prednisone 20 mg daily. At this point, would continue prednisone 20 mg daily and would hold off increasing prednisone at the present time. 5. Pneumonia. The patient does have a right upper lobe consolidation on imaging. He is started on doxycycline. 6. Back pain with history of abnormal thoracic lesion. Bone scan has been ordered, as Dr. May had noted sclerotic appearing lesions on chest CT and therefore has ordered a bone scan to rule out malignancy. 7. Myelodysplastic syndrome. The patient follows with oncology in [place]. We attempted to try to contact the oncology office to obtain recent notes; however, we were unable to get through to the office today. We will continue to follow this patient along with the medical attending. AI
[2018-07-31] MEDS ORDERED: FUROSEMIDE 20 MG/2 ML VIAL (J1940) IV ONE (17:30)
[2018-07-31] MEDS ORDERED: GLUCAGON FOR INJ 1 MG VIAL (J1610) SC PRN (17:45)
[2018-07-31] MEDS ORDERED: GLUCOSE 4 GM CHEW TABLET PO PRN (17:45)
[2018-07-31] MEDS: DOXYCYCLINE HYCLATE 100 MG in D5W MINI-BAG PLUS 100 ML IV SCH (18:38)
[2018-07-31] MEDS: HumaLOG INSULIN (NovoLOG) PER UNIT SC SCH (18:52)
[2018-07-31] MEDS ORDERED: METAL LOCK LOOP XX ONE (19:09)
--- NOTE | 2018-07-31 19:57 | ECGEPIP ---
Stationary ECG Study [facility] - ED Test Date: 2018-07-31 Pat Name: JILLIAN LOZOYA Department: Room: - Gender: M Implementation Specialist: pmo : [id number] Requested By: Carlita Underwood Order Number: [id number] Reading MD: Carlita Underwood Measurements Intervals [place] Rate: 97 P: 26 [place]: 132 QRS: -5 QRSD: 94 T: 68 QT: 351 QTc: 447 Interpretive Statements SINUS RHYTHM WITH FREQUENT VENTRICULAR PREMATURE COMPLEXES POSSIBLE RIGHT VENTRICULAR CONDUCTION DELAY NONSPECIFIC ST & T-WAVE ABNORMALITY ABNORMAL RHYTHM ECG INCREASED RATE 06/18/17 Electronically Signed On 07-31-2018 19:57:13 EDT by Carlita Underwood
[2018-07-31 20:30] VITALS: BP 130/52
[2018-07-31] MEDS: GABAPENTIN 300 MG CAP PO SCH (20:36)
[2018-07-31] MEDS: PANTOPRAZOLE 40MG TAB (PROTONIX) PO SCH (20:36)
[2018-07-31] MEDS: PERCOCET 5MG/325MG TAB PO PRN (20:38)
[2018-07-31] MEDS: LORazepam 0.5 MG TAB PO PRN (20:38)
[2018-07-31] MEDS ORDERED: LEVEMIR (INSULIN DETEMIR) 1 UNITS/0.01ML SC SCH (21:00)
[2018-07-31 22:30] VITALS: BP 137/62
[2018-07-31 22:31] LABS: MB/CK RELATIVE INDEX 7.32 (< OR =4); TROPONIN I 0.95 NG/ML (< 0.10)
--- NOTE | 2018-07-31 22:41 | HPEPDOC ---
General Date of Admission 07/31/18 Chief Complaint The patient is a 67-year-old male admitted with a reason for visit of Breathing Diff. 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 Patient does not use oxygen however he intermittently checks his pulse oximetry at home. It usually runs around 90%. Yesterday night it was down to 85% and this morning it was down to 78% at rest . He called the pulmonologists office and was instructed to come to the ED. In the ED on presentation he was hypoxic to 81% in room air. A cxr showed large globular heart with possible infiltrates and ct chest was done which showed small pericardial effusion, enlargement of all 4 chambers of the heart, Right upper lobe infiltrate consistent with pneumonia. Fine reticulonodular pattern in the lung cardozo consistent with some degree of chronic interstitial lung disease , evidence suggesting anemia. cholelithiasis. Increased density in the liver consistent with hemochromatosis. Labs revealed a hemoglobin of 7.1, Hct of 22, probnp> 5000, mildly elevated troponins at 0.8. Patient was felt to have CHF exacerbation, acute respiratory failure with hy poxia, symptomatic anemia and right upper lobe pneumonia. Home Medications Scheduled Amoxicillin (Amoxicillin) 500 Mg Tablet, 500 MG PO TID, (Reported) FILLED 07/29/18 FOR 10 DAYS Aspirin (Aspirin) 325 Mg Tablet, 325 MG PO DAILY, (Reported) Atorvastatin Calcium (Atorvastatin Calcium) 10 Mg Tablet, 10 MG PO DAILY, (Reported) Chlorthalidone (Chlorthalidone) 25 Mg Tablet, 25 MG PO BID, (Reported) TAKES AN EXTRA 25MG TABLET IN THE MORNING EVERY OTHER DAY - 50MG TOTAL EVERY OTHER DAY AND 75MG TOTAL EVERY OTHER DAY Chlorthalidone (Chlorthalidone) 25 Mg Tablet, 25 MG PO Q2D, (Reported) TAKES AN EXTRA 25MG TABLET IN THE MORNING EVERY OTHER DAY - 50MG TOTAL EVERY OTHER DAY AND 75MG TOTAL EVERY OTHER DAY Ergocalciferol (Vitamin D2) (Vitamin D2) 50,000 Unit Capsule, 50,000 UNIT PO QWEEK, (Reported) MONDAYS Gabapentin (Gabapentin) 300 Mg Capsule, 300 MG PO QHS, (Reported) Hyoscyamine Sulfate (Hyoscyamine Sulfate) 0.125 Mg Tab.subl, 0.125 MG PO WM, (Reported) Insulin Degludec (Tresiba Flextouch U-200) 200 Unit/1 Ml Insuln.pen, 50 UNIT SC DAILY, (Reported) DOSE HAS BEEN FLUCTUATING DUE TO PREDNISONE Insulin Lispro (Humalog Kwikpen U-100) 100 Unit/Ml Inj, 3 UNITS SC AC, (Reported) USES AT BREAKFAST - HAS NOT BEEN TAKING DUE TO PREDNISONE DROPPING SUGARS Insulin Lispro (Humalog Kwikpen U-100) 100 Unit/Ml Inj, 7 UNITS SC AC, (Reported) USES AT LUNCHTIME - HAS NOT BEEN TAKING DUE TO PREDNISONE DROPPING SUGARS Insulin Lispro (Humalog Kwikpen U-100) 100 Unit/Ml Inj, 10 UNITS SC AC, (Reported) USES AT DINNERTIME - HAS NOT BEEN TAKING DUE TO PREDNISONE DROPPING SUGARS Losartan Potassium (Losartan Potassium) 25 Mg Tablet, 25 MG PO QHS, (Reported) Melatonin (Melatonin) 10 Mg Tablet, 10 MG PO QHS, (Reported) Metoprolol Succinate (Metoprolol Succinate) 50 Mg Tab.er.24h, 50 MG PO DAILY, (Reported) Pantoprazole Sodium (Pantoprazole Sodium) 40 Mg Tablet.dr, 40 MG PO ACHS, (Reported) VERIFIED WITH EXTERNAL MED HISTORY - CANNOT GET IN TOUCH WITH PHARMACY - STATED THAT THE [employer] THAT PLACED HIS STENTS UPPED HIS DOSE. HAS BEEN GETTING FILLED THIS WAY SINCE 10/2017 FROM WHAT I CAN SEE Prednisone (Prednisone) 20 Mg Tablet, 20 MG PO DAILY, (Reported) Scheduled PRN Lorazepam (Lorazepam) 0.5 Mg Tablet, 0.5 MG PO TID PRN for ANXIETY, (Reported) Oxycodone HCl/Acetaminophen (Oxycodone-Acetaminophen 5-325) 1 Each Tablet, 1 TAB PO Q4H PRN for PAIN, (Reported) MAY TAKE TWO TABLETS Allergies Coded Allergies: No Known Allergies (Unverified , 07/01/14) Past Medical History Medical History coronary artery disease s/p stents. Interstitial lung disease, Pulmonary Hypertension, right heart failure. Chronic transfusion dependent anemia. Diabetes. Hypertension. Myelodysplastic syndrome since 2011 with chronic anemia transfusion dependent Anxiety. Diastolic and systolic Congestive heart failure and right heart failure Chronic kidney disease (CKD), stage III. Gastroesophageal reflux disease. Gout. Mitral Regurgitation. Cholelithiasis. Surgical History tonsillectomy, adenoidectomy Social History * Smoker: Denies Alcohol: Denies Drugs: denies A-FIB/CHADSVASC A-FIB History Current/History of A-Fib/PAF?: No Review of Systems Constitutional: Reports: Weakness, Fatigue; Denies: Chills, Fever Eyes: Denies: Pain, Vision change, Conjunctivae inflammation, Redness, Other ENT: Denies: Head Aches, Ear Pain, Dysphagia, Sinus Congestion, Sore Throat Skin: Denies: Rash, Lesions, Breakdown Pulmonary: Reports: Dyspnea Cardiovascular: Reports: Chest Pain, Orthopnea, Edema Gastrointestinal: Reports: Other Symptoms (open ulcer on the left buttock next to the anal opening and extending upwards and across the midline); Denies: Nausea, Vomiting, Abdominal Pain, Diarrhea, Constipation Genitourinary: Denies: Dysuria, Frequency, Incontinence, Retention Musculoskeletal: Reports: Back Pain, Other Symptoms (pain in the buttocks) Psych: Reports: Anxiety Physical Examination General Exam: Positive: Alert, Cooperative, No Acute Distress Eye Exam: Positive: PERRLA, Conjunctiva & lids normal, EOMI; Negative: Sclera icteric ENT Exam: Positive: Atraumatic, Mucous membr. moist/pink, Pharynx Normal Neck Exam: Positive: Supple, JVD Chest Exam: Positive: Rales (fine bilateral crackles), Diminished Heart Exam: Positive: Rate Normal, Irregular Rhythm, Normal S1, Normal S2; Negative: Tachycardic, Bradycardic, Regular Rhythm, Gallops, Rubs, Other Telemetry: Positive: Sinus, PVCs Abdomen Exam: Positive: Normal bowel sounds, Soft, Tenderness (right upper quadrant), Other (possible ascitis) Extremity Exam: Positive: Edema (3 to 4+ bipedal pitting edema), Swelling; Negative: Clubbing, Cyanosis, Tenderness Skin Exam: Positive: Nl turgor and temperature, Other skin issue (there is an opento the skin long fistulatous tract on the left buttock adjacent t the anus extending upwards and across the midline. base is clean) Psych Exam: Positive: Anxiety, Memory Intact, Oriented x 3 Vital Signs Vital Signs Date Time Temp Pulse Resp B/P (MAP) Pulse Ox O2 Delivery O2 Flow Rate FiO2 07/31/18 15:16 86 92 07/31/18 15:01 103/68 (80) 07/31/18 14:17 Nasal Cannula 2.0 07/31/18 12:33 98.7 28 Laboratory Data Labs 24H Laboratory Tests 2 07/31/18 12:55: Immature Granulocyte % (Auto) 1.5, White Blood Count 11.3H, Red Blood Count 2.22L, Hemoglobin 7.1L, Hematocrit 22.9L, Mean Corpuscular Volume 103.2H, Mean Corpuscular Hemoglobin 32.0, Mean Corpuscular Hemoglobin Concent 31.0L, Red Cell Distribution Width 28.5H, Platelet Count 181, Neutrophils (%) (Auto) 75.6H, Lymphocytes (%) (Auto) 10.3L, Monocytes (%) (Auto) 12.4H, Eosinophils (%) (Auto) 0.1, Basophils (%) (Auto) 0.1, Neutrophils # (Auto) 8.5H, Lymphocytes # (Auto) 1.2L, Monocytes # (Auto) 1.4H, Eosinophils # (Auto) 0.0, Basophils # (Auto) 0.0, Nucleated Red Blood Cells % (auto) 1.3H, Erythrocyte Sedimentation Rate 60H, Pro thrombin Time 17.1H, Prothromb Time International Ratio 1.37, Anion Gap 8, Glomerular Filtration Rate 54.0, Calcium Level 7.7L, Aspartate Amino Transf (AST/SGOT) 14, Alanine Aminotransferase (ALT/SGPT) 27, Alkaline Phosphatase 97, Total Bilirubin 3.2H, Direct Bilirubin 0.4H, Total Creatine Kinase 26L, Creatine Kinase MB 4.0H, Creatine Kinase MB Relative Index 15.77H, Troponin I 0.81H, C- Reactive Protein, Quantitative 11.90H, SY-[id number]-[id number]-Type Natriuretic Peptide 5452H, Total Protein 4.3L, Albumin 2.6L, Albumin/Globulin Ratio 1.53, Lipase 66L, Thyroid Stimulating Hormone (TSH) 1.780 CBC/BMP Laboratory Tests 07/31/18 12:55 Red Blood Count 2.22 L, Mean Corpuscular Volume 103.2 H, Mean Corpuscular Hemoglobin 32.0, Mean Corpuscular Hemoglobin Concent 31.0 L, Red Cell Distribut ion Width 28.5 H, Neutrophils (%) (Auto) 75.6 H, Lymphocytes (%) (Auto) 10.3 L, Monocytes (%) (Auto) 12.4 H, Eosinophils (%) (Auto) 0.1, Basophils (%) (Auto) 0.1, Neutrophils # (Auto) 8.5 H, Lymphocytes # (Auto) 1.2 L, Monocytes # (Auto) 1.4 H, Eosinophils # (Auto) 0.0, Basophils # (Auto) 0.0 Assessment/Plan 67 year old male with PMH of Coronary artery disease s/p bare metal stents x 2 in october 2017, Interstitial lung disease on steroids thought to be due to Revlimid used for the treatment of MDS, Pulmonary Hypertension, right heart failure , Diabetes, Hypertension, Myelodysplastic syndrome with chronic anemia transfusion dependent, possible secondary hemochromatosis, fatty liver, obesity, Anxiety, Diastolic and systolic Congestive heart failure and right heart [place], Chronic kidney disease (CKD) stage III, Gastroesophageal reflux disease, Gout, Nonhealing anal fissures and fistulas s/p surgery in mar 2018 presented to the ED for 1 day history of increasing SOB and hypoxia noted a home along with increasing pedal swelling for about a week. Patient does not use oxygen however he intermittently checks his pulse oximetry at home. It usually runs around 90%. Yesterday night it was down to 85% and this morning it was down to 78% at rest . He called the pulmonologists office and was instructed to come to the ED. In the ED on presentation he was hypoxic to 81% in room air. A cxr showed large globular heart with possible infiltrates and ct chest was done which showed small pericardial effusion, enlargement of all 4 chambers of the heart, Right upper lobe infiltrate consistent with pneumonia. Fine reticulonodular pattern in the lung cardozo consistent with some degree of chronic interstitial lung disease , evidence suggesting anemia. cholelithiasis. Increased density in the liver consistent with hemochromatosis. Labs revealed a hemoglobin of 7.1, Hct of 22, probnp> 5000, mildly elevated troponins at 0.8. Patient was felt to have CHF exacerbation, acute respiratory failure with hypoxia, symptomatic anemia and right upper lobe pneumonia. Acute respiratory failure with hypoxia multifactorial CHF exacerbation, pneumonia, anemia and interstitial lung disease. continue diuresis and oxygen supplementation Diastolic and systolic Congestive heart failure and right heart failure exacerbation As per family last year his ef was around 40% will get new echo will start on IV lasix. daily weights, I/O, fluid restriction Elevated troponins probably due to demand ischemia from Chf, hypoxia and anemia will repeat cardiac markers. Right upper lobe pneumonia patient started on doxycycline follow up pulmonary recommendations blood cultures pending. Coronary artery disease s/p stents. continue ASA and metoprolol and statin Interstitial lung disease, Pulmonary Hypertension, right heart failure. continue with prednisone dose reduced from 20mg bid to 20 mg daily about 2 weeks ago. Chronic transfusion dependent anemia. symptomatic now. due to MDS. last transfusion 3 days ago. will give 1 unit of PRBC after some diuretics to avoid further fluid overload. Diabetes. FS AC and HS. lispro as per sliding scale reduced dose of levemir. Hypertension. BP low normal at present will hold losartan, give metoprolol with hold parameters to allow enough BP to use adequete doses of lasix. Myelodysplastic syndrome since 2011 with chronic anemia last chemotherapy in march. Anxiety. continue home meds Chronic kidney disease (CKD), stage III. creatinine seems to be better than baseline probably due to fluid overload i expect it to rise with adequate diuresis. will continue to monitor Gastroesophageal reflux disease. continue home meds Possible secondary hemochromatosis due to transfusions will check ferritin Fatty liver rule out cirrhosis will get abdominal US. Perianal fistulas and fissures thought to ba a complication of chemotherapy now opened to skin has not been healing since April follows with a colorectal surgeon in [place] plans for wound vac placement Gout. continue home meds. DVT prophylaxis ordered. Plan / VTE VTE Prophylaxis Ordered?: Yes PATRICIA PARRA MD Jul 31, 2018 16:28
[2018-07-31 22:45] VITALS: BP 144/67
[2018-08-01] VITALS (8 sets, daily range): BP systolic 102–140; BP diastolic 46–76
[2018-08-01] MEDS ORDERED: FUROSEMIDE 20 MG/2 ML VIAL (J1940) IV SCH ×2 (02:00)
[2018-08-01] MEDS: DEXTROSE 50% 50 ML SYRINGE IV PRN ×5 (03:40→08:20)
[2018-08-01] MEDS: DOXYCYCLINE HYCLATE 100 MG in D5W MINI-BAG PLUS 100 ML IV SCH ×2 (05:18→17:59)
[2018-08-01 05:32] LABS: HEMATOCRIT 27.9 % (42.0-52.0); HEMOGLOBIN 8.8 g/dl (13.5-17.5); MEAN CORPUSCULAR HEMOGLOBIN 32.8 pg (27.0-33.0); MEAN CORPUSCULAR HGB CONC 31.5 g/dl (32.0-36.5); MEAN CORPUSCULAR VOLUME 104.1 fl (80.0-96.0); PLATELET COUNT, AUTOMATED 136 10^3/uL (150-450); RED BLOOD COUNT 2.68 10^6/uL (4.30-6.10); WHITE BLOOD COUNT 10.4 10^3/uL (4.0-10.0)
[2018-08-01 06:02] LABS: CALCIUM LEVEL 8.4 MG/DL (8.8-10.2); CREATININE FOR GFR 1.39 MG/DL (0.70-1.30); GLOMERULAR FILTRATION RATE 54.4 (>49); MAGNESIUM LEVEL 2.1 MG/DL (1.8-2.4); MB/CK RELATIVE INDEX 5.91 (< OR =4); POTASSIUM SERUM 4.9 MEQ/L (3.5-5.1); TROPONIN I 0.86 NG/ML (< 0.10)
[2018-08-01] MEDS: PERCOCET 5MG/325MG TAB PO PRN ×2 (06:07→20:19)
[2018-08-01] MEDS: HumaLOG INSULIN (NovoLOG) PER UNIT SC SCH ×3 (07:53→20:20)
--- NOTE | 2018-08-01 08:08 | IPNPDOC ---
Subjective Date Seen The patient was seen on 08/01/18. Subjective Chief Complaint/HPI SOB and hypoxia Events since last encounter SOB a little better this morning. He had good output with diuretics and says his leg swelling is better. He did get 1 unit of PRBC last night. No fever or chills, No cough or phlegm. No nausea or vomiting or diarrhea. He did feels a retrosternal pressure last night while lying in bed which he says lasted for 1 to 2 mins . Says he was given something for acid which helped . At home he says has has this short acting episodes of chest heaviness in [facility] when he takes some tums which helps. He has been hypoglycemic overnight . He did not get any insulin after admission however he did take his 50 units of long acting insulin before coming to the hospital yesterday morning. Also he has been npo overnight for US abdomen. He did however had a little dinner. Objective Physical Examination General Exam: Positive: Alert, Cooperative, No Acute Distress Eye Exam: Positive: PERRLA, Conjunctiva & lids normal, EOMI; Negative: Sclera icteric ENT Exam: Positive: Atraumatic, Mucous membr. moist/pink, Pharynx Normal Neck Exam: Positive: Supple, JVD Chest Exam: Positive: Rales (fine bilateral crackles), Diminished Heart Exam: Positive: Rate Normal, Irregular Rhythm, Normal S1, Normal S2; Negative: Tachycardic, Bradycardic, Regular Rhythm, Gallops, Rubs, Other Telemetry: Positive: Sinus, PVCs, Other Telemetry: (NSVTs) Abdomen Exam: Positive: Normal bowel sounds, Soft, Tenderness (right upper quadrant), Other (possible ascitis) Extremity Exam: Positive: Edema (3 to 4+ bipedal pitting edema), Swelling; Negative: Clubbing, Cyanosis, Tenderness Skin Exam: Positive: Nl turgor and temperature, Other skin issue (there is an opento the skin long fistulatous tract on the left buttock adjacent t the anus extending upwards and across the midline. 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 Patient does not use oxygen however he intermittently checks his pulse oximetry at home. It usually runs around 90%. Yesterday night it was down to 85% and this morning it was down to 78% at rest . He called the pulmono logists office and was instructed to come to the ED. In the ED on presentation he was hypoxic to 81% in room air. A cxr showed large globular heart with possible infiltrates and ct chest was done which showed small pericardial effusion, enlargement of all 4 chambers of the heart, Right upper lobe in filtrate consistent with pneumonia. Fine reticulonodular pattern in the lung cardozo consistent with some degree of chronic interstitial lung disease , evidence suggesting anemia. cholelithiasis. Increased density in the liver consistent with hemochromatosis. Labs revealed a hemoglobin of 7.1, Hct of 22, probnp> 5000, mildly elevated troponins at 0.8. Patient was felt to have CHF exacerbation, acute respiratory failure with hypoxia, symptomatic anemia and right upper lobe pneumonia. Acute respiratory failure with hypoxia multifactorial CHF exacerbation, pneumonia, anemia and interstitial lung disease. continue diuresis and oxygen supplementation Diastolic and systolic Congestive heart failure and right heart failure exacerbation As per family last year his ef was around 40% will get new echo will start on IV lasix. daily weights, I/O, fluid restriction Elevated troponins probably due to demand ischemia from Chf, hypoxia and anemia will repeat cardiac markers. Right upper lobe pneumonia patient started on doxycycline follow up pulmonary recommendations blood cultures pending. Coronary artery disease s/p stents. continue ASA and metoprolol and statin PVCs and NSVTs in tele asymptomatic will continue metoprolol with hold parameters. Interstitial lung disease, Pulmonary Hypertension, right heart failure. continue with prednisone dose reduced from 20mg bid to 20 mg daily about 2 weeks ago. Chronic transfusion dependent anemia. symptomatic now. due to MDS. last transfusion 3 days ago. will give 1 unit of PRBC after some diuretics to avoid further fluid overload. Diabetes. FS AC and HS and prn. Now hypoglycemic. will hold all insulins for now. Hypertension. BP low normal at present will hold losartan, give metoprolol with hold parameters to allow enough BP to use adequete doses of lasix. Myelodysplastic syndrome since 2011 with chronic anemia last chemotherapy in march. Anxiety. continue home meds Chronic kidney disease (CKD), stage III. creatinine seems to be better than baseline probably due to fluid overload i expect it to rise with adequate diuresis. will continue to monitor Gastroesophageal reflux disease. continue home meds Possible secondary hemochromatosis due to transfusions will check ferritin Fatty liver rule out cirrhosis will get abdominal US. Perianal fistulas and fissures thought to ba a complication of chemotherapy now opened to skin has not been healing since April follows with a colorectal surgeon in [place] plans for wound vac placement Gout. continue home meds. DVT prophylaxis ordered. Plan/VTE VTE Prophylaxis Ordered?: Yes VS, I&O, 24H, Fishbone Vital Signs/I&O Vital Signs Date Time Temp Pulse Resp B/P (MAP) Pulse Ox O2 Delivery O2 Flow Rate FiO2 08/01/18 06:37 20 08/01/18 04:00 97.8 79 135/76 (95) 99 2.0 07/31/18 20:01 Nasal Cannula I&O- Last 24 Hours up to 6 AM 08/01/18 06:00 Intake Total 700 ml Output Total 1350 ml Balance -650 ml Laboratory Data 24H LABS Laboratory Tests 2 07/31/18 12:55: Immature Granulocyte % (Auto) 1.5, White Blood Count 11.3H, Red Blood Count 2.22L, Hemoglobin 7.1L, Hematocrit 22.9L, Mean Corpuscular Volume 103.2H, Mean Corpuscular Hemoglobin 32.0, Mean Corpuscular Hemoglobin Concent 31.0L, Red Cell Distribution Width 28.5H, Platelet Count 181, Neutrophils (%) (Auto) 75.6H, Lymphocytes (%) (Auto) 10.3L, Monocytes (%) (Auto) 12.4H, Eosinophils (%) (Auto) 0.1, Basophils (%) (Auto) 0.1, Neutrophils # (Auto) 8.5H, Lymphocytes # (Auto) 1.2L, Monocytes # (Auto) 1.4H, Eosinophils # (Auto) 0.0, Basophils # (Auto) 0.0, Nucleated Red Blood Cells % (auto) 1.3H, Erythrocyte Sedimentation Rate 60H, Prothrombin Time 17.1H, Prothromb Time International Ratio 1.37, Anion Gap 8, Glomerular Filtration Rate 54.0, Calcium Level 7.7L, Aspartate Amino Transf (AST/SGOT) 14, Alanine Aminotransferase (ALT/SGPT) 27, Alkaline Phosphatase 97, Total Bilirubin 3.2H, Direct Bilirubin 0.4H, Total Creatine Kinase 26L, Creatine Kinase MB 4.0H, Creatine Kinase MB Relative Index 15.77H, Troponin I 0.81H, C- Reactive Protein, Quantitative 11.90H, DQ-[id number]-Type Natriuretic Peptide 5452H, Total Protein 4.3L, Albumin 2.6L, Albumin/Globulin Ratio 1.53, Lipase 66L, Thyroid Stimulating Hormone (TSH) 1.780 07/31/18 15:28: Magnesium Level 2.0 07/31/18 20:45: Bedside Glucose (Misc Panel) 84 07/31/18 21:45: Total Creatine Kinase 41, Creatine Kinase MB 3.0, Creatine Kinase MB Relative Index 7.32H, Troponin I 0.95H, Ferritin 1168H 08/01/18 03:38: Bedside Glucose (Misc Panel) 35*L 08/01/18 04:04: Bedside Glucose (Misc Panel) 62L 08/01/18 04:33: Bedside Glucose (Misc Panel) 40L 08/01/18 04:56: Bedside Glucose (Misc Panel) 71L 08/01/18 05:13: Bedside Glucose (Misc Panel) 52L 08/01/18 05:14: Nucleated Red Blood Cells % (auto) 1.3H, Anion Gap 5L, Glomerular Filtration Rate 54.4, Blood Urea Nitrogen 42H, Creatinine 1.39H, Sodium Level 139, Potassium Level 4.9, Chloride Level 106, Carbon Dioxide Level 28, Calcium Level 8.4L, Total Creatine Kinase 44, Magnesium Level 2.1, Creatine Kinase MB 3.0, Creatine Kinase MB Relative Index 5.91H, Troponin I 0.86H 08/01/18 05:46: Bedside Glucose (Misc Panel) 107 08/01/18 06:53: Bedside Glucose (Misc Panel) 72L CBC/BMP Laboratory Tests 07/31/18 12:55 Red Blood Count 2.22 L, Mean Corpuscular Volume 103.2 H, Mean Corpuscular Hemoglobin 32.0, Mean Corpuscular Hemoglobin Concent 31.0 L, Red Cell Distribution Width 28.5 H, Neutrophils (%) (Auto) 75.6 H, Lymphocytes (%) (Auto) 10.3 L, Monocytes (%) (Auto) 12.4 H, Eosinophils (%) (Auto) 0.1, Basophils (%) (Auto) 0.1, Neutrophils # (Auto) 8.5 H, Lymphocytes # (Auto) 1.2 L, Monocytes # (Auto) 1.4 H, Eosinophils # (Auto) 0.0, Basophils # (Auto) 0.0 08/01/18 05:14 Red Blood Count 2.68 L, Mean Corpuscular Volume 104.1 H, Mean Corpuscular Hemoglobin 32.8, Mean Corpuscular Hemoglobin Concent 31.5 L, Red Cell Distr ibution Width 27.0 H, Calcium Level 8.4 L, Total Creatine Kinase 44 PATRICIA PARRA MD Aug 01, 2018 08:08
[2018-08-01] MEDS ORDERED: METOPROLOL SUCC (TopROL XL) 50MG **XL** TAB PO SCH (09:00)
[2018-08-01] MEDS: SUCRALFATE 1 GM TAB PO SCH ×2 (09:32→20:18)
[2018-08-01] MEDS: FUROSEMIDE 20 MG/2 ML VIAL (J1940) IV SCH ×3 (09:32→21:29)
[2018-08-01] MEDS: ASPIRIN 325 MG TAB PO SCH (09:32)
[2018-08-01] MEDS: ATORVASTATIN 10 MG TAB PO SCH (09:33)
[2018-08-01] MEDS: METOPROLOL SUCC (TopROL XL) 50MG **XL** TAB PO SCH (09:33)
[2018-08-01] MEDS: predniSONE 20 MG TAB PO SCH (09:33)
[2018-08-01] MEDS ORDERED: PILL CUTTER 1 EACH XX PRN (10:00)
--- NOTE | 2018-08-01 10:40 | REP ---
ABDOMINAL ULTRASOUND: HISTORY: Ascites. Calcifications are present in the gallbladder consistent with cholelithiasis. The gallbladder wall measures 2.3 mm. The common bile duct measures 4.3 mm. There is fatty infiltration of the liver. The pancreas is not see due to overlying bowel gas. The spleen is normal in echogenicity. The spleen is enlarged measuring 17.6 cm. There is renal cortical atrophy. The right kidney measures 5.1 cm in transverse by 5.1 cm in AP x 10.8 cm in cephalocaudal dimensions. The left kidney measures 4.5 cm in transverse x 5.7 cm in AP x 10.3 cm in cephalocaudal dimensions. There is no hydronephrosis or mass. There is no free fluid. IMPRESSION: 1. Cholelithiasis. 2. There is fatty infiltration of the liver. Electronically Signed by Jarret Noel MD 08/01/2018 10:44 A
--- NOTE | 2018-08-01 15:30 | CCN ---
DATE: 08/01/2018 Mr. Dunbar feels less short of breath this morning. He has had no productive cough. No fevers or chills. Feels like he has slightly more energy. He is no longer having any chest discomfort. Lower extremity edema has also improved. He has had no hemoptysis, fever, or chills. No night sweats. Temperature is 97.4, pulse 70, respiratory rate is 18, blood pressure is 140/49 with a mean arterial pressure of 79, oxygen saturations 91% on 1 liter of oxygen. The patient had net negative almost 2 liters in the past 24 hours. HEENT: Sclerae clear and anicteric. Oral mucosa is pale. Tongue is midline. NECK: Supple. No tracheal deviation or mass. LYMPH: No cervical, supraclavicular, or axillary adenopathy. CARDIAC: Regular S1, S2 without audible murmur, rub, or gallop. There is elevated jugular venous pulse (JVP). Point of maximal impulse (PMI) is displaced laterally. PULMONARY: There are bibasilar rales that actually extend up two-thirds of the posterior thorax. ABDOMEN: Obese, soft, nontender, nondistended. No hepatosplenomegaly. No masses or hernia. SKIN: Pale without any new bruising. There is a sclerotic patch over the left knee. EXTREMITIES: Improved edema. Continues with sock edema. LABORATORY EVALUATION: Shows a white blood cell count 10.4, hemoglobin 98.8, platelet count of 104. Sodium is 139, potassium 4.9, chloride is 106, bicarbonate of 28, BUN of 42, creatinine of 1.39. No new imaging. Abdominal ultrasound is pending. Bone scan is ordered; however, not clear that this will be performed. Right ultrasound of the liver shows cholelithiasis with a slightly distended gallbladder with a fatty infiltration of the liver. The spleen appeared normal. Kidneys appeared without hydronephrosis. IMPRESSION: 1. Acute respiratory illness with hypoxia, improved with diuretic therapy. There is a question whether this is actually interstitial lung disease or whether this is just pulmonary edema, as he recently had a CT scan 2 weeks ago that was very clear. There is right upper lobe infiltrate, more consistent with pneumonia. He is being covered with antibiotics with doxycycline, as myelodysplasia has higher risk of developing infection. The patient remains at 20 mg of prednisone. If there is no further evidence of interstitial lung disease, this will be tapered further. 2. Congestive heart failure. Echocardiogram is pending. The patient has known history of systolic dysfunction. 3. Anemia, improved with transfusion of 1 unit. Will continue to monitor for need for further transfusion and for blood loss; however, this is felt to be secondary to myelodysplastic syndrome. 4. Coronary artery disease. I believe he had anginal equivalent with chest discomfort yesterday with the severity of his anemia and his volume status. Will continue to monitor for further signs of angina. 5. Chronic kidney disease. 6. Anxiety. 7. Pararectal abscess. States he is due for wound inspection and possible debridement under anesthesia this week. I have explained to him this will depend on his workup during this hospitalization and whether or not he would be able to tolerate anesthesia. Appreciate Dr. Wynn's management of this patient. I will continue to follow him from pulmonary standpoint.
[2018-08-01] MEDS: LORazepam 0.5 MG TAB PO PRN (18:37)
[2018-08-01] MEDS: PANTOPRAZOLE 40MG TAB (PROTONIX) PO SCH (20:18)
[2018-08-01] MEDS: GABAPENTIN 300 MG CAP PO SCH (20:18)
[2018-08-01] MEDS ORDERED: LEVEMIR (INSULIN DETEMIR) 1 UNITS/0.01ML SC SCH (21:00)
[2018-08-02] VITALS: BP 117/52
[2018-08-02 04:00] VITALS: BP 144/62
[2018-08-02] MEDS: FUROSEMIDE 20 MG/2 ML VIAL (J1940) IV SCH ×3 (05:34→21:31)
[2018-08-02] MEDS: DOXYCYCLINE HYCLATE 100 MG in D5W MINI-BAG PLUS 100 ML IV SCH (05:35)
[2018-08-02 05:59] LABS: HEMATOCRIT 24.8 % (42.0-52.0); HEMOGLOBIN 8.1 g/dl (13.5-17.5); MEAN CORPUSCULAR HEMOGLOBIN 32.8 pg (27.0-33.0); MEAN CORPUSCULAR HGB CONC 32.7 g/dl (32.0-36.5); MEAN CORPUSCULAR VOLUME 100.4 fl (80.0-96.0); PLATELET COUNT, AUTOMATED 140 10^3/uL (150-450); RED BLOOD COUNT 2.47 10^6/uL (4.30-6.10); WHITE BLOOD COUNT 5.2 10^3/uL (4.0-10.0)
[2018-08-02 06:08] LABS: CREATININE FOR GFR 1.6 MG/DL (0.70-1.30); GLOMERULAR FILTRATION RATE 46.3 (>49); MAGNESIUM LEVEL 2.1 MG/DL (1.8-2.4); POTASSIUM SERUM 4.5 MEQ/L (3.5-5.1)
--- NOTE | 2018-08-02 07:33 | REPVR ---
EXAM: CT Chest Without Contrast EXAM DATE/TIME: 08/02/2018 6:00 AM CLINICAL HISTORY: 67 years old, male; Signs and symptoms; Other: Ild vs pulmonary edema TECHNIQUE: Imaging protocol: Axial computed tomography images of the chest without intravenous contrast. Coronal and sagittal reformatted images were created and reviewed. 3D rendering: MIP reconstructed images were created and reviewed. Radiation optimization: All CT scans at this facility use at least one of these dose optimization techniques: automated exposure control; mA and/or kV adjustment per patient size (includes targeted exams where dose is matched to clinical indication); or iterative reconstruction. COMPARISON: CT Chest without contrast 07/31/2018 1:[address] Chest without contrast 06/15/2017 10:11:[address] Chest without contrast 06/16/2015 3:52:21 PM FINDINGS: Tubes, catheters and devices: There is a right sided [id number]. Lungs: A fine granular appearance of the lungs diffusely is noted, with more distinct reticulonodular densities and poorly defined patchy areas of groundglass opacity in both upper lobes. This is unchanged from the prior exam of 2 days ago but is much less prominent than in 2017 and in 2015. A small patchy area of consolidation at the right lung apex is unchanged from 2 days ago. Multiple small thin-walled cystic spaces are seen bilaterally, mostly in the upper lobes which are unchanged compared to 2018 but are new compared to 2016. There is no significant bronchiectasis or architectural distortion. Pleural space: There are no pleural effusions present. Heart: There is severe atherosclerotic calcification of the coronary arteries. There is a small pericardial effusion. The heart is normal in size. Aorta: The aorta demonstrates mild atherosclerotic calcification. Lymph nodes: No lymphadenopathy is seen. Bones/joints: Degenerative endplate changes are seen at multiple levels in the visualized spine. No suspicious osseous lesions. No acute fractures or dislocations. Soft tissues: Unremarkable. Liver: Diffuse hyperdensity of the liver is again noted, suggestive of hemochromatosis. Gallbladder and bile ducts: Multiple small calcified gallstones are present. Spleen: There is mild nonspecific splenomegaly. The spleen measures 16 cm AP. Its full craniocaudal extent is not included on this exam. IMPRESSION: 1. No significant change in the appearance of the lungs compared to the CT scan of 2 days ago. Patchy consolidation at the right lung apex probably represents pneumonia superimposed on chronic lung disease. The underlying lung disease shows significant improvement compared to the more remote prior exams of 2018 and 2016. 2. Hyperdense liver, suggestive of hemochromatosis. 3. Nonspecific splenomegaly. 4. Cholelithiasis. Electronically signed by: Nitza Nicole On 08/02/2018 07:33:12 AM
[2018-08-02 08:00] VITALS: BP 150/52
[2018-08-02] MEDS: ASPIRIN 325 MG TAB PO SCH (08:26)
[2018-08-02] MEDS: HumaLOG INSULIN (NovoLOG) PER UNIT SC SCH ×4 (08:26→19:47)
[2018-08-02] MEDS: predniSONE 20 MG TAB PO SCH (08:27)
[2018-08-02] MEDS: METOPROLOL SUCC (TopROL XL) 50MG **XL** TAB PO SCH (08:27)
[2018-08-02] MEDS: ATORVASTATIN 10 MG TAB PO SCH (08:27)
[2018-08-02] MEDS: SUCRALFATE 1 GM TAB PO SCH ×2 (08:27→19:47)
[2018-08-02] MEDS: LEVEMIR (INSULIN DETEMIR) 1 UNITS/0.01ML SC SCH ×2 (08:28→19:47)
--- NOTE | 2018-08-02 08:33 | ECHO ---
DATE OF PROCEDURE: 07/31/2018 REFERRING PROVIDER: Dr. Luis Piper. PATIENT LOCATION: At the time of the echocardiogram, emergency department Room 17. REASON FOR ECHOCARDIOGRAM: Heart failure, unspecified. 2D MEASUREMENT: IVS - 1.4 cm LV - 5.4 cm LVPW - 1.3 cm LA - 4.7 cm Aorta - 3.7 cm IVC - 2.1 cm DOPPLER MEASUREMENTS: Peak velocity across the aortic valve - 1.7 m/s Peak velocity across the LVOT - 1.1 m/s Mitral E - 0.58, Mitral A - 0.70 with a ratio of 0.8 Maximum tricuspid valve velocity - 3.7 m/s 2D COMMENTS: 1. Normal left ventricular size with mildly increased left ventricular wall thickness. Left ventricular systolic function is normal, estimated at 65-70%. 2. Mildly enlarged left atrium. The right atrium and the right ventricle also appear to be enlarged. The right ventricular free wall seems to be hypokinetic consistent with some features of right ventricular systolic dysfunction. 3. Borderline enlarged aortic root. 4. Trace to small pericardial effusion noted, no evidence of cardiac tamponade. 5. Mildly calcified aortic valve with normal leaflet excursion. Normal mitral valve, tricuspid valve, and pulmonic valve. The proximal pulmonary artery branches appear to be normal. 6. The inferior vena cava was mildly enlarged but with good respiratory variation. DOPPLER: It detects mild aortic regurgitation, mild mitral regurgitation, moderate tricuspid regurgitation, and mild pulmonic regurgitation. The calculated pulmonary artery systolic pressure varies between 50-60 mmHg. Abnormal relaxation pattern was noted across the mitral valve leaflets as well as the mitral annulus consistent with features of grade 1 left ventricular diastolic dysfunction. IMPRESSION: 1. Normal global left ventricular systolic function with mild concentric left ventricular hypertrophy. There are some features of left ventricular diastolic dysfunction manifested by impaired relaxation. 2. Aortic valve sclerosis with mild aortic regurgitation and trivial aortic stenosis. 3. Mildly enlarged left atrium with mild mitral regurgitation. 4. Moderate tricuspid regurgitation with moderate pulmonary hypertension. The right heart chambers also appear to be dilated and there are some features consistent with right ventricular systolic dysfunction. 5. Mild pulmonic regurgitation. 6. Trace to small pericardial effusion, no evidence of cardiac tamponade. 7. Isolated PVCs noted during the test. MTDD
--- NOTE | 2018-08-02 11:32 | IPNPDOC ---
Subjective Date Seen The patient was seen on 08/02/18. Subjective Chief Complaint/HPI SOB and hypoxia Events since last encounter SOb is better, Leg swelling is improving, patient is not requiring any more ox ygen. he feels less fatigued and eager to go for a walk. he s refusing PRBC transfusion at this time. No fever or chills, no cough or phlegm. Objective Physical Examination General Exam: Positive: Alert, Cooperative, No Acute Distress Eye Exam: Positive: PERRLA, Conjunctiva & lids normal, EOMI; Negative: Sclera icteric ENT Exam: Positive: Atraumatic, Mucous membr. moist/pink, Pharynx Normal Neck Exam: Positive: Supple, JVD Chest Exam: Positive: Rales (fine bilateral crackles), Diminished Heart Exam: Positive: Rate Normal, Irregular Rhythm, Normal S1, Normal S2; Negative: Tachycardic, Bradycardic, Regular Rhythm, Gallops, Rubs, Other Telemetry: Positive: Sinus, PVCs, Other Telemetry: (NSVTs) Abdomen Exam: Positive: Normal bowel sounds, Soft, Tenderness (right upper quadrant), Other (possible ascitis) Extremity Exam: Positive: Edema (3 to 4+ bipedal pitting edema), Swelling; Negative: Clubbing, Cyanosis, Tenderness Skin Exam: Positive: Nl turgor and temperature, Other skin issue (there is an opento the skin long fistulatous tract on the left buttock adjacent t the anus extending upwards and across the midline. 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 Patient does not use oxygen however he intermittently checks his p ulse oximetry at home. It usually runs around 90%. Yesterday night it was down to 85% and this morning it was down to 78% at rest . He called the pulmonologists office and was instructed to come to the ED. In the ED on presentation he was hypoxic to 81% in room air. A cxr showed large globular heart with possible infiltrates and ct chest was done which showed small pericardial effusion, enlargement of all 4 chambers of the heart, Right upper lobe infiltrate consistent with pneumonia. Fine reticulonodular pattern in the lung cardozo consistent with some degree of chronic interstitial lung disease , evidence suggesting anemia. cholelithiasis. Increased density in the liver consistent with hemochromatosis. Labs revealed a hemoglobin of 7.1, Hct of 22, probnp> 5000, mildly elevated troponins at 0.8. Patient was felt to have CHF exacerbation, acute respiratory failure with hypoxia, symptomatic anemia and right upper lobe pneumonia. Acute respiratory failure with hypoxia multifactorial CHF exacerbation, pneumonia, anemia and interstitial lung disease. continue diuresis and oxygen supplementation as needed. Acute exacerbation Diastolic and right heart failure exacerbation As per family last year his eF was around 40% Echo here does not show any systolic dysfunction, does show moderate to severe pulmonary hypertension, right ventricular dysfunction and diastolic dysfunction. Continue on IV lasix. daily weights, I/O, fluid restriction Pulmonary hypertension moderate to severe with right heart failure continue on lasix. Elevated troponins probably due to demand ischemia from Chf, hypoxia and anemia will repeat cardiac markers. Right upper lobe pneumonia patient started on doxycycline follow up pulmonary recommendations blood cultures pending. Coronary artery disease s/p stents. continue ASA and metoprolol and statin PVCs and NSVTs in tele asymptomatic will continue metoprolol with hold parameters. Interstitial lung disease, Pulmonary Hypertension, right heart failure. continue with prednisone dose reduced from 20mg bid to 20 mg daily about 2 weeks ago. Chronic transfusion dependent anemia. symptomatic now. due to MDS. last transfusion 3 days ago. will give 1 unit of PRBC after some diuretics to avoid further fluid overload. Diabetes. FS AC and HS and prn. Now hypoglycemic. will hold all insulins for now. Hypertension. BP low normal at present will hold losartan, give metoprolol with hold parameters to allow enough BP to use adequete doses of lasix. Myelodysplastic syndrome since 2011 with chronic anemia last chemotherapy in march. Anxiety. continue home meds Chronic kidney disease (CKD), stage III. creatinine seems to be better than baseline probably due to fluid overload i expect it to rise with adequate diuresis. will continue to monitor Gastroesophageal reflux disease. continue home meds Possible secondary hemochromatosis due to transfusions High Ferritin Fatty liver rule out cirrhosis will get abdominal US. Perianal fistulas and fissures thought to ba a complication of chemotherapy now opened to skin has not been healing since April follows with a colorectal surgeon in [place] plans for wound vac placement Gout. continue home meds. DVT prophylaxis ordered. Plan/VTE VTE Prophylaxis Ordered?: Yes VS, I&O, 24H, Fishbone Vital Signs/I&O Vital Signs Date Time Temp Pulse Resp B/P (MAP) Pulse Ox O2 Delivery O2 Flow Rate FiO2 08/02/18 08:29 85 93 08/02/18 08:27 150/52 08/02/18 08:00 98.0 16 1.0 07/31/18 20:01 Nasal Cannula I&O- Last 24 Hours up to 6 AM 08/02/18 06:00 Intake Total 1860 ml Output Total 3500 ml Balance -1640 ml Laboratory Data 24H LABS Laboratory Tests 2 08/01/18 16:58: Bedside Glucose (Misc Panel) 365H 08/01/18 20:07: Bedside Glucose (Misc Panel) 448H 08/01/18 23:37: Bedside Glucose (Misc Panel) 353H 08/02/18 03:33: Bedside Glucose (Misc Panel) 240H 08/02/18 05:36: Nucleated Red Blood Cells % (auto) 0.8H, Anion Gap 8, Glomerular Filtration Rate 46.3L, Blood Urea Nitrogen 59H, Creatinine 1.60H, Sodium Level 140, Potassium Level 4.5, Chloride Level 105, Carbon Dioxide Level 27, Calcium Level 8.0L, Magnesium Level 2.1 08/02/18 05:39: Bedside Glucose (Misc Panel) 208H CBC/BMP Laboratory Tests 08/02/18 05:36 Red Blood Count 2.47 L, Mean Corpuscular Volume 100.4 H, Mean Corpuscular Hemoglobin 32.8, Mean Corpuscular Hemoglobin Concent 32.7, Red Cell Distribution Width 26.3 H, Calcium Level 8.0 L PATRICIA PARRA MD Aug 02, 2018 11:30
[2018-08-02 12:00] VITALS: BP 138/50
[2018-08-02] MEDS: LORazepam 0.5 MG TAB PO PRN ×2 (15:06→19:53)
[2018-08-02 16:00] VITALS: BP 162/58
[2018-08-02] MEDS: DOXYCYCLINE HYCLATE 100 MG TAB PO SCH (17:54)
[2018-08-02] MEDS: PANTOPRAZOLE 40MG TAB (PROTONIX) PO SCH (19:47)
[2018-08-02] MEDS: GABAPENTIN 300 MG CAP PO SCH (19:47)
[2018-08-02] MEDS: PERCOCET 5MG/325MG TAB PO PRN (19:52)
[2018-08-02 20:00] VITALS: BP 134/54
--- NOTE | 2018-08-02 22:00 | CCN ---
DATE: 08/02/2018 Mr. Dunbar states he feels well today. His shortness of breath is significantly improved with 2 liters of diuresis. He is able to ambulate around the nursing station without hypoxia. He is having no chest discomfort. His edema has improved. Chest CT was repeated this morning as outlined below. Vital signs: Temperature is 98.0, pulse of 85, respiratory rate is 16, blood pressure is 150/52 with an oxygen saturation of 93% on room air. General: Awake, alert and oriented. Affect and mood are appropriate. Nutrition and hygiene and fair. HEENT: Sclerae clear and anicteric. Pupils equal, reactive to light. Mucous membranes are moist. Tongue is midline. Neck is supple. No tracheal deviation or mass. Lymphatics: No cervical, supraclavicular or axillary adenopathy. Cardiac: Regular S1, S2 without audible murmur, rub or gallop. No elevated JVP. Systemic edema is improved. Pulmonary: There are a few bibasilar rales, no rhonchi or wheeze. There is improvement of the rales. Abdomen: Soft, nontender, nondistended. No hepatosplenomegaly. No masses or hernia. Extremities: Without cyanosis or clubbing. Pedal edema is improved. LABORATORY EVALUATION: Sodium is 140, potassium 4.5, chloride is 105, bicarbonate is 27, BUN is 59, creatinine is up to 1.6, glucose is 198 with a calcium of 8.0, troponin peaked at 0.95. CBC: White count is down to 5.2, hemoglobin is at 8.1 with a platelet count of 140. Chest CT shows persistent right upper lobe infiltrate consistent with pneumonia. There is a subtle ground glass appearance to the lungs without significant increase in interstitial markings. It is very nonspecific findings. IMPRESSION: 1. Pneumonia, treated with doxycycline, white count is improved. Chest CT consistent with right upper lobe pneumonia. 2. Abnormal CT scan. Nonspecific haziness in the lung cardozo. Difficult to identify exact cause and not typical of his prior interstitial lung disease. His oxygen saturation and symptoms improved with diuresis. I believe he likely will require diuresis with his recurrent blood transfusions. There is always a possibility given the fact that he has elevated ferritin that he is developing hemosiderosis. He does appear to have liver deposits from the frequent transfusions. Will discuss with Dr. Lazaro possible chelating agent. 3. History of perirectal abscess and fistula. He is scheduled for general anesthesia this week which I do not feel is recommended especially given his recent anginal symptoms associated with his anemia. There is no obvious infection at the site currently, however, the patient is stating he is having irritation around the drain. I will attempt to contact Dr. Phoenix tomorrow to discuss the case with him. Maybe an outpatient visit may be enough for inspection. 4. Anemia with recurrent need for transfusion. 5. Coronary artery disease with congestive heart failure.
[2018-08-03] VITALS: BP 128/64
[2018-08-03 04:00] VITALS: BP 105/59
[2018-08-03] MEDS: DOXYCYCLINE HYCLATE 100 MG TAB PO SCH (05:43)
[2018-08-03] MEDS: FUROSEMIDE 20 MG/2 ML VIAL (J1940) IV SCH (05:44)
[2018-08-03 05:45] LABS: HEMATOCRIT 23.2 % (42.0-52.0); HEMOGLOBIN 7.5 g/dl (13.5-17.5); MEAN CORPUSCULAR HEMOGLOBIN 32.9 pg (27.0-33.0); MEAN CORPUSCULAR HGB CONC 32.3 g/dl (32.0-36.5); MEAN CORPUSCULAR VOLUME 101.8 fl (80.0-96.0); PLATELET COUNT, AUTOMATED 133 10^3/uL (150-450); RED BLOOD COUNT 2.28 10^6/uL (4.30-6.10); WHITE BLOOD COUNT 4.9 10^3/uL (4.0-10.0)
[2018-08-03 06:03] LABS: CALCIUM LEVEL 8.3 MG/DL (8.8-10.2); CREATININE FOR GFR 1.55 MG/DL (0.70-1.30); MAGNESIUM LEVEL 1.9 MG/DL (1.8-2.4); POTASSIUM SERUM 3.9 MEQ/L (3.5-5.1)
[2018-08-03 08:00] VITALS: BP 110/58
[2018-08-03] MEDS: ASPIRIN 325 MG TAB PO SCH (08:26)
[2018-08-03] MEDS: SUCRALFATE 1 GM TAB PO SCH (08:26)
[2018-08-03 08:27] VITALS: BP 156/90
[2018-08-03] MEDS: METOPROLOL SUCC (TopROL XL) 50MG **XL** TAB PO SCH (08:27)
[2018-08-03] MEDS: ATORVASTATIN 10 MG TAB PO SCH (08:27)
[2018-08-03] MEDS: HumaLOG INSULIN (NovoLOG) PER UNIT SC SCH ×2 (08:28→12:00)
[2018-08-03] MEDS: LEVEMIR (INSULIN DETEMIR) 1 UNITS/0.01ML SC SCH (08:28)
[2018-08-03] MEDS ORDERED: predniSONE 5 MG TAB PO SCH (09:00)
[2018-08-03] MEDS ORDERED: LASI40TA9 PO (11:51)
[2018-08-03] MEDS ORDERED: PRED5TA PO (11:51)
[2018-08-03] MEDS ORDERED: DOXY100T PO (11:51)
[2018-08-03 12:00] VITALS: BP 121/58
[2018-08-03] MEDS ORDERED: LASI20TA3 PO (13:59)
--- NOTE | 2018-08-11 14:44 | DS.PDOC ---
Discharge Summary General Date of Admission Jul 31, 2018 at 17:20 Date of Discharge 08/03/18 Discharge Summary PROCEDURES PERFORMED DURING STAY: [None]. DISCHARGE DIAGNOSIS: Acute Hypoxic Respiratory failure due to CHF Acute diastolic congestive heart failure and acute right heart failure Pulmonary hypertension Right upper lobe pneumonia MDS transfusion dependent Chronic anemia Secondary transfusion related hemosiderosis. Possible Interstitial lung disease on po steroids. coronary artery disease s/p stents Frequent PVCs and NSVTs Diabetes Hypertension CKD Pararectal fistulas Gout Fatty liver. COMPLICATIONS/CHIEF COMPLAINT: ChF, Symptomatic Anemia. 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 Patient does not use oxygen however he intermittently checks his pulse oximetry at home. It usually runs around 90%. Yesterday night it was down to 85% and this morning it was down to 78% at rest . He called the pulmonologists office and was instructed to come to the ED. In the ED on p resentation he was hypoxic to 81% in room air. A cxr showed large globular heart with possible infiltrates and ct chest was done which showed small pericardial effusion, enlargement of all 4 chambers of the heart, Right upper lobe infiltrate consistent with pneumonia. Fine reticulonodular pattern in the lung cardozo consistent with some degree of chronic interstitial lung disease , evidence suggesting anemia. cholelithiasis. Increased density in the liver consistent with hemochromatosis. Labs revealed a hemoglobin of 7.1, Hct of 22, probnp> 5000, mildly elevated troponins at 0.8. Patient was felt to have CHF exacerbation, acute respiratory failure with hypoxia, symptomatic anemia and right upper lobe pneumonia. Acute respiratory failure with hypoxia multifactorial CHF exacerbation, pneumonia, anemia and interstitial lung disease. continue diuresis and oxygen supplementation as needed. Acute exacerbation Diastolic and right heart failure exacerbation As per family last year his EF was around 40% Echo here does not show any systolic dysfunction, does show moderate to severe pulmonary hypertension, right ventricular dysfunction and diastolic dysfunction. Continue on po lasix. daily weights, I/O, fluid restriction Pulmonary hypertension moderate to severe with right heart failure continue on lasix. Elevated troponins probably due to demand ischemia from Chf, hypoxia and anemia Right upper lobe pneumonia patient started on doxycycline blood cultures negative till date. Coronary artery disease s/p stents. continue ASA and metoprolol and statin PVCs and NSVTs in tele asymptomatic will continue metoprolol Interstitial lung disease, Pulmonary Hypertension, right heart failure. It is unsure at this point whether he actually has ILD or not . The picture could be due to interstitial edema and heme pigment deposits from his seconday hemosiderosis. continue with prednisone dose reduced to 15mg daily. This was reduced this admission follow up with Dr May. Chronic transfusion dependent anemia. received 2 units this admission Diabetes. FS AC and HS and prn. Now hypoglycemic. will hold all insulins for now. Hypertension. BP low normal at present stopped losartan bp lowish continue metoprolol and start on PO lasix daily on discharge Myelodysplastic syndrome since 2011 with chronic anemia last chemotherapy in March. Anxiety. continue home meds Chronic kidney disease (CKD), stage III. creatinine seems to be better than baseline probably due to fluid overload i expect it to rise with adequate diuresis and then stabilize will continue to monitor Gastroesophageal reflux disease. 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 Tried to contact Dr Lazaro to discuss this and the need for lasix after each blood transfusion to avoid him going into fluid overload Left message with nursing secretary . awaiting his call back Fatty liver with cholelithiasis , no ascites or cirrhotic features noted Pararectal fistulas and fissures thought to be a complication of chemotherapy now opened to skin has not been healing since April follows with a colorectal surgeon Dr Bledsoe in [place] plans for wound de bridement and wound vac placement ian this week follow up with him Gout. continue home meds. DISCHARGE MEDICATIONS: Please see below. ALLERGIES: Please see below. PHYSICAL EXAMINATION ON DISCHARGE: VITAL SIGNS: Please see below. General Exam: Positive: Alert, Cooperative, No Acute Distress Eye Exam: Positive: PERRLA, Conjunctiva & lids normal, EOMI; Negative: Sclera icteric ENT Exam: Positive: Atraumatic, Mucous membr. moist/pink, Pharynx Normal Neck Exam: Positive: Supple, JVD Chest Exam: Positive: Rales (fine bilateral crackles), Diminished Heart Exam: Positive: Rate Normal, Irregular Rhythm, Normal S1, Normal S2; Negative: Tachycardic, Bradycardic, Regular Rhythm, Gallops, Rubs, Other Telemetry: Positive: Sinus, PVCs, Other Telemetry: (NSVTs) Abdomen Exam: Positive: Normal bowel sounds, Soft, Tenderness (right upper quadrant), Other (possible ascitis) Extremity Exam: Positive: Edema (3 to 4+ bipedal pitting edema), Swelling; Negative: Clubbing, Cyanosis, Tenderness Skin Exam: Positive: Nl turgor and temperature, Other skin issue (there is an opento the skin long fistulatous tract on the left buttock adjacent t the anus extending upwards and across the midline. base is clean) Psych Exam: Positive: Anxiety, Memory Intact, Oriented x 3 LABORATORY DATA: Please see below. ACTIVITY: [As tolerated]. DIET: Carb consistent diet, 2 gram sodium, fluid restriction 1.5 liters. DISCHARGE PLAN: Home DISPOSITION: . DISCHARGE INSTRUCTIONS: Follow up PMD Dr Benavidez in [address] May in 2 to [address] Bledsoe Follow up DR Lazaro Monitor your weight daily. If it increased > 4 lbs in 1 days call your PMD. DISCHARGE CONDITION: [Stable]. TIME SPENT ON DISCHARGE: Greater than 30 minutes. Vital Signs/I&Os Vital Signs Date Time Temp Pulse Resp B/P (MAP) Pulse Ox O2 Delivery O2 Flow Rate FiO2 08/03/18 08:27 96 156/90 08/03/18 08:00 98.2 20 93 08/02/18 08:00 1.0 07/31/18 20:01 Nasal Cannula I&O- Last 24 Hours up to 6 AM 08/03/18 06:00 Intake Total 1600 ml Output Total 4725 ml Balance -3125 ml Laboratory Data Labs 24H Laboratory Tests 2 08/02/18 17:21: Bedside Glucose (Misc Panel) 244H 08/02/18 19:46: Bedside Glucose (Misc Panel) 223H 08/03/18 05:03: Nucleated Red Blood Cells % (auto) 1.0H, Anion Gap 5L, Glomerular Filtration Rate 48.0L, Blood Urea Nitrogen 65H, Creatinine 1.55H, Sodium Level 143, Potassium Level 3.9, Chloride Level 107, Carbon Dioxide Level 31, Calcium Level 8.3L, Magnesium Level 1.9 CBC/BMP Laboratory Tests 08/03/18 05:03 Red Blood Count 2.28 L, Mean Corpuscular Volume 101.8 H, Mean Corpuscular Hemoglobin 32.9, Mean Corpuscular Hemoglobin Concent 32.3, Red Cell Distribution Width 26.1 H, Calcium Level 8.3 L FSBS Laboratory Tests Test 08/02/18 17:21 08/02/18 19:46 Range/Units Bedside Glucose (Misc Panel) 244 223 80-115 MG/DL Discharge Medications Scheduled Aspirin (Aspirin) 325 Mg Tablet, 325 MG PO DAILY, (Reported) Atorvastatin Calcium (Atorvastatin Calcium) 10 Mg Tablet, 10 MG PO DAILY, (Reported) Doxycycline Hyclate (Doxycycline Hyclate) 100 Mg Tablet, 100 MG PO BID@0600,1800 Ergocalciferol (Vitamin D2) (Vitamin D2) 50,000 Unit Capsule, 50,000 UNIT PO QWEEK, (Reported) MONDAYS Furosemide (Lasix) 40 Mg Tablet, 1 TAB PO DAILY Furosemide (Lasix) 20 Mg Tablet, 20 MG PO DAILY at 5 pm Gabapentin (Gabapentin) 300 Mg Capsule, 300 MG PO QHS, (Reported) Hyoscyamine Sulfate (Hyoscyamine Sulfate) 0.125 Mg Tab.subl, 0.125 MG PO WM, (Reported) Insulin Degludec (Tresiba Flextouch U-200) 200 Unit/1 Ml Insuln.pen, 50 UNIT SC DAILY, (Reported) DOSE HAS BEEN FLUCTUATING DUE TO PREDNISONE Insulin Lispro (Humalog Kwikpen U-100) 100 Unit/Ml Inj, 3 UNITS SC AC, (Reported) USES AT BREAKFAST - HAS NOT BEEN TAKING DUE TO PREDNISONE DROPPING SUGARS Insulin Lispro (Humalog Kwikpen U-100) 100 Unit/Ml Inj, 7 UNITS SC AC, (Reported) USES AT LUNCHTIME - HAS NOT BEEN TAKING DUE TO PREDNISONE DROPPING SUGARS Insulin Lispro (Humalog Kwikpen U-100) 100 Unit/Ml Inj, 10 UNITS SC AC, (Reported) USES AT DINNERTIME - HAS NOT BEEN TAKING DUE TO PREDNISONE DROPPING SUGARS Melatonin (Melatonin) 10 Mg Tablet, 10 MG PO QHS, (Reported) Metoprolol Succinate (Metoprolol Succinate) 50 Mg Tab.er.24h, 50 MG PO DAILY, (Reported) Pantoprazole Sodium (Pantoprazole Sodium) 40 Mg Tablet.dr, 40 MG PO ACHS, (Reported) VERIFIED WITH EXTERNAL MED HISTORY - CANNOT GET IN TOUCH WITH PHARMACY - STATED THAT THE [employer]PER[employer] AGENT THAT PLACED HIS STENTS UPPED HIS DOSE. HAS BEEN GETTING FILLED THIS WAY SINCE 10/2017 FROM WHAT I CAN SEE Prednisone (Prednisone) 5 Mg Tablet, 15 MG PO DAILY Scheduled PRN Lorazepam (Lorazepam) 0.5 Mg Tablet, 0.5 MG PO TID PRN for ANXIETY, (Reported) Oxycodone HCl/Acetaminophen (Oxycodone-Acetaminophen 5-325) 1 Each Tablet, 1 TAB PO Q4H PRN for PAIN, (Reported) MAY TAKE TWO TABLETS Allergies Coded Allergies: No Known Allergies (Unverified , 07/01/14) PATRICIA PARRA MD Aug 03, 2018 12:38
== END 2018-08-03 17:02 | disposition home or self-care (01) | DRG 291 ==
LOC: M ED 12:32 → M ED INP 17:20 → M PCU 20:12
PROVIDERS: ADMIT Internal Medicine Nephrology; ATTEND Internal Medicine Nephrology
PROC: 30233N1 Transfusion of Nonautologous Red Blood Cells into Peripheral Vein, Percutaneous Approach (ICD-10-PCS; principal; 2018-07-31)
DX: I13.0 Hypertensive heart and chronic kidney disease with heart failure and stage 1 through stage 4 chronic kidney disease, or unspecified chronic kidney disease (principal); J96.01 Acute respiratory failure with hypoxia; I50.43 Acute on chronic combined systolic (congestive) and diastolic (congestive) heart failure; J18.9 Pneumonia, unspecified organism; I24.8 Other forms of acute ischemic heart disease; J84.9 Interstitial pulmonary disease, unspecified; I25.10 Atherosclerotic heart disease of native coronary artery without angina pectoris; I27.20 Pulmonary hypertension, unspecified; E11.22 Type 2 diabetes mellitus with diabetic chronic kidney disease; D46.9 Myelodysplastic syndrome, unspecified; K76.0 Fatty (change of) liver, not elsewhere classified; I34.0 Nonrheumatic mitral (valve) insufficiency; E66.9 Obesity, unspecified; E83.118 Other hemochromatosis; K60.3 Anal fistula; I50.812 Chronic right heart failure; M10.9 Gout, unspecified; T80.89XA Other complications following infusion, transfusion and therapeutic injection, initial encounter; F41.9 Anxiety disorder, unspecified; N18.3 Chronic kidney disease, stage 3 (moderate); K21.9 Gastro-esophageal reflux disease without esophagitis; Z95.5 Presence of coronary angioplasty implant and graft; Z79.4 Long term (current) use of insulin; Z79.82 Long term (current) use of aspirin; Z79.52 Long term (current) use of systemic steroids; Z79.899 Other long term (current) drug therapy; Z68.36 Body mass index [BMI] 36.0-36.9, adult

== ENCOUNTER → 2018-08-10 | Outpatient (REF) | payer OTHER, MEDICARE ==
[~2018-08-10] MED LIST changes: +AMOX500T PO; +ATOR1TAB19 PO; +BAYE325T16 PO; +DOXY100T PO; +GABA-843 PO; +HYOS125TA PO; +LASI40TA9 PO; +LOSA25TA14 PO; +OXYC1TAB23 PO; +PANT-23 PO; +PRED20TA PO; +PRED5TA PO; +RA M10TA PO; +VITA50005 PO
== END ==
LOC: M LAB REF 16:55
PROVIDERS: ATTEND Internal Medicine Pulmonary Disease
DX: J84.9 Interstitial pulmonary disease, unspecified (principal)